=== PATIENT | male | born 1990 | race Caucasian/White ===

== ENCOUNTER 2020-10-11 13:23 | Emergency (ER) | payer SELFPAY ==
[2020-10-11 13:25] VITALS: BP 161/82; PULSE 89; RESP 20; TEMP 36.6; O2SAT 97; BMI 24.2
--- NOTE | 2020-10-11 13:41 | W.ED.GENADLT ---
HPI - General Adult General: Chief complaint: General Medical Stated complaint: PENIS SWELLING/INFECTION, Time Seen by Provider: 10/11/20 13:27 History of Present Illness: HPI narrative: 30-year-old male who presents to the emergency room with complaint of sores on the scrotum. They have been excoriated. He states initially began as pimples he was able to express some whitish fluid from them there were never any clear fluids did not burn. Denies dysuria urgency or frequency. Associated symptoms: Deny malaise Review of Systems Const: Denies: fever(s), chills, body aches, change in appetite, fatigue or malaise Skin/Breast: Reports: sores; Denies: pruritus Physical Exam Const: COMMON NORMALS: no acute distress GENERAL APPEARANCE: cooperative and comfortable ORIENTATION/CONSCIOUSNESS: Yes awake, Yes oriented to person, Yes oriented to place and Yes oriented to time HENMT: COMMON NORMALS: normocephalic, atraumatic and hearing grossly normal bilaterally HEAD & SCALP: normocephalic and atraumatic Neck/C-Spine: COMMON NORMALS: no JVD Resp: COMMON NORMALS: normal respiratory effort, No retractions, No use of accessory muscles and clear to auscultation bilaterally AUSCULTATION: clear to auscultation bilaterally Cardio: COMMON NORMALS: no JVD, regular rate, regular rhythm and No murmurs present (Cardio) RATE: regular rate RHYTHM: regular rhythm Neuro: SENSORIUM/ORIENTATION: Yes oriented to person, Yes oriented to place and Yes oriented to time Skin: NARRATIVE SKIN EXAM: Excoriation on the arms and legs. There is also some on the scrotum and the shaft of the penis. They are not inflamed there is no cratered ulcers. Some bumps from ingrown hairs due to personal shaving. No penile drainage. Course Vital Signs: Vital signs: Vital Signs Temperature 97.9 F 10/11/20 13:25 Pulse Rate 89 10/11/20 13:25 Respiratory Rate 20 H 10/11/20 13:25 Blood Pressure 161/82 10/11/20 13:25 Pulse Oximetry 97 10/11/20 13:25 MDM - General Adult MDM Narrative: Medical decision making narrative: Treated for staph infection topical mupirocin Bactrim follow-up as needed Discharge Plan Discharge Patient Disposition: Home Clinical Impression: Cellulitis of scrotum Condition: Stable Prescriptions: New mupirocin 2 % ointment 1 applic topical TID Qty: 22 RF: 0 sulfamethoxazole-trimethoprim 800-160 mg tablet 1 tab PO BID 10 Days Qty: 20 RF: 0 Discharge Orders: Discharge ED (Routine); Ordered 10/11/20 Ordered By: Gerry Galindo Coding Level of Care Code ED [employer]on Tester for Yenni Gruber
== END 2020-10-11 13:51 | disposition home or self-care (01) ==
PROVIDERS: Emergency Provider Family Medicine
DX: N49.2 Inflammatory disorders of scrotum (principal)
CPT/HCPCS: 12345; 99281

== ENCOUNTER 2021-11-20 16:16 | Emergency (ER) | payer MEDICAID, SELFPAY ==
[2021-11-20 16:36] VITALS: BP 113/74; PULSE 122; RESP 24; TEMP 36.7; O2SAT 92; BMI 24.3
[2021-11-20] MEDS: sodium chloride 0.9% 1,000 ML 999 ML IV (17:09)
[2021-11-20 17:10] VITALS: PULSE 104; RESP 16; O2SAT 95
[2021-11-20] MEDS: diphenhydrAMINE 50 mg/mL SDV 1mL IVP (17:10)
[2021-11-20] MEDS: famotidine 20 mg/2 mL INJ 40 MG IVP (17:13)
[2021-11-20 17:14] VITALS: PULSE 100; RESP 16; O2SAT 96
[2021-11-20] MEDS: terbutaline 1 mg/mL INJ 0.25 MG SUBCUT (17:14)
--- NOTE | 2021-11-20 17:14 | ED_ITS ---
HPI - General Adult General: Chief complaint: Allergic Reaction Stated complaint: sob Time Seen by Provider: 11/20/21 16:44 History of Present Illness: HPI narrative: This 31-year-old male with a history of recent significant allergic reaction presenting to the emergency room with complaints of diffuse erythema, difficulty breathing, wheezing, itchiness on his face which started around 12:00 after he was in contact with a cat. Patient tells me that over the last 3-month, he has had worsening allergic symptoms. Patient tells me and he is currently try to figure out why he is having all these allergy symptoms and has not followed with a PCP or an human resources records clerk. Patient reports that he is allergic to hair and other household items. No complaints of chills, chest pain, shortness of, diarrhea, melena/hematochezia, nausea/vomiting, abdominal complaints, difficulty breathing, drooling, hoarseness of voice, erythema in the mouth or groin, No prior history of anaphylactic attack Onset: 4 hrs ago Duration:4 hrs Location:home Severity:moderate Associated symptoms: Reports dyspnea; Deny chest pain, nausea, rash, palpitations or vomiting Review of Systems Const: Denies: fever(s) or chills Eyes: Denies: change in vision ENMT: Reports: other (+denies drooling, stridor, hoarseness of voice); Denies: mouth pain Card: Denies: chest pain or palpitations Resp: Reports: dyspnea and non-productive cough GI: Denies: abdominal pain, nausea, vomiting or diarrhea : Denies: dysuria Musc: Denies: extremity pain Skin/Breast: Denies: rash or new lesions Neuro: Denies: weakness in extremities Psych: Reports: other (Normal mood) Alpesh/Lymph: Denies: easy bruising PFS ED PFSH: Medical History (Updated 11/20/21 @ 17:16 by Charanjit Gallardo MD) Allergic reaction Social History (Updated 11/20/21 @ 17:16 by Charanjit Gallardo MD) Smoking and tobacco status: current every day smoker Alcohol intake: never Substance/Drug Use: former Physical Exam Const: COMMON NORMALS: alert HENMT: COMMON NORMALS: atraumatic HEAD & SCALP: atraumatic MOUTH: other (no tongue swelling or elevation, no posterior pharnygeal edema/swelling); moist mucous membranes not abnormal Eye: COMMON NORMALS: EOMs intact bilaterally and conjunctivae normal CONJUNCTIVA: Yes conjunctivae normal Neck/C-Spine: COMMON NORMALS: full ROM and supple Resp: COMMON NORMALS: normal respiratory effort AUSCULTATION: other (wheezing b/l) Cardio: RATE: bradycardic GI: COMMON NORMALS: Soft to palpation and non-tender PALPATION: Yes Soft to palpation Extremity: COMMON NORMALS: full ROM Neuro: SENSORIUM/ORIENTATION: Yes alert MOTOR EXAM: No Abnormal motor strength present and Other motor observations present (no focal motor deficits) Psych: COMMON NORMALS: speech normal SPEECH: Yes normal speech MOOD & AFFECT: Yes euthymic mood Course Vital Signs: Vital signs: Vital Signs Temperature 98.1 F 11/20/21 16:36 Pulse Rate 93 11/20/21 19:00 Respiratory Rate 16 11/20/21 19:00 Blood Pressure 142/82 11/20/21 19:00 Pulse Oximetry 97 11/20/21 19:00 MDM - General Adult MDM Narrative Medical decision making narrative: Patient is a 31-year-old male who presents emergency room with complaints of diffuse erythema, difficulty breathing, wheezing and itchiness on his face after getting exposed to a cat. On exam, patient has no signs oral airway compromise. Patient is noted to have wheezing bilaterally. Patient on arrival was noted to be mildly tachycardic to the 120s. Patient is noted to have diffuse erythema with urticaria on the face. Patient received allergic treatments including Solu-Medrol, Pepcid, terbutaline, albuterol neb, and Benadryl with significant improvement in symptoms after observation of 2 hours. Patient continues to be in no respiratory distress or complaints of oral airway swelling. I do not suspect acute anaphylaxis or angioedema at this time. HR imprvoed on reassessment I have given patient follow up with our corrections caseworker to be seen by a primary care provider for allergic testing. Patient aware of a call from our corrections caseworker to schedule for appointment(s) and verbalizes understanding of the importance of following up. Rx prednisone x 5 days, pepcid/zyrtec PRN allergic reaction, albuterol inhaler PRN wheezing Disposition: Discharge. Patient counseled regarding diagnostic impression, treatment plan. Patient given ED strict return precautions to return for continuation, worsening, or development of new symptoms. Instructed to f/u w/ PCP regarding symptoms today. Patient verbalized understanding. Discharge Plan Discharge Patient Disposition: Home Clinical Impression: Allergic reaction, Urticaria, Bilateral wheezing Condition: Stable Prescriptions: New Pepcid 20 mg tablet 20 mg PO BID PRN (Reason: abdominal pain) 10 Days Qty: 20 0RF albuterol sulfate 90 mcg/actuation HFA aerosol inhaler 2 inh inhalation Q4H PRN (Reason: shortness of breath or wheezing) 5 Days Qty: 6.7 0RF prednisone 50 mg tablet 50 mg PO DAILY 5 Days 0RF Zyrtec 10 mg tablet,disintegrating 10 mg PO Q12H PRN (Reason: allergy symptoms) 30 Days Qty: 60 0RF No Action buprenorphine-naloxone [Suboxone] 2-0.5 mg film 1 film buccal DAILY 0RF Rx Instructions: place 1 strip/tab under (each) side of tongue sulfamethoxazole-trimethoprim [Bactrim DS] 800-160 mg tablet 1 tab PO BID 10 Days Qty: 20 0RF Discharge Orders: Discharge ED (Routine); Ordered 11/20/21 Ordered By: Charanjit Gallardo Discharge Diet: Advance as tolerated Discharge Activity: Increase activity as tolerated Patient Instructions: Allergies (ED) Activity Restrictions/Additional Instructions: Come back to the emergency room if you have any worsening symptoms including sore throat, difficulty breathing, choking, drooling, worsening itchiness, or any new or concerning complaints. Take your medicine as instructed. Please follow-up with your primary care provider or human resources records clerk for further evaluation of your symptoms. Coding Level of Care Code ED Cotton Picking Machine Operator for Yenni Fwd Exam Comprehensive
[2021-11-20 17:24] VITALS: BP 143/93; O2SAT 98
[2021-11-20] MEDS: albuterol 8 gm MDI 4 PUFF INHALATION (17:35)
[2021-11-20 19:00] VITALS: BP 142/82; PULSE 93; RESP 16; O2SAT 97
--- NOTE | 2021-11-20 19:08 | PC.NURSE ---
REVIEWED DISCHARGE INSTRUCTIONS WITH PATIENT, PATIENT AMB FROM ED WITH PRESCRIPTIONS AND INSTRUCTIONS
--- NOTE | 2021-11-22 16:03 | DCPLANNER ---
delicatessen manager had message to speak with patient about getting established with a primary care physician. delicatessen manager called phone number [phone], unable to speak with patient at this time. delicatessen manager was unable to leave a voicemail for patient due to no voicemail box set up.
== END 2021-11-20 19:08 | disposition home or self-care (01) ==
PROVIDERS: Emergency Provider Emergency Medicine
DX: T78.40XA Allergy, unspecified, initial encounter (principal); L50.9 Urticaria, unspecified; R06.2 Wheezing; F17.210 Nicotine dependence, cigarettes, uncomplicated
CPT/HCPCS: 94640; 96361; 96372; 96374; 96375; 99284; J1200; J2930; J3105; J3490; J3535; J7030

== ENCOUNTER 2021-12-21 14:05 | Inpatient (IN) | payer MEDICAID, SELFPAY ==
[2021-12-21] VITALS (8 sets, daily range): BP systolic 128–163; BP diastolic 77–104; PULSE 85–118; RESP 14–22; TEMP 36.7–36.9; O2SAT 85–97; BMI 22.5
--- NOTE | 2021-12-21 | USCV_ITS ---
Transthoracic Echo Dillan Brasher Age: 31 Gender: M : 1990 Exam Date: 12/21/2021 19:54 Ordering Phys: Yaakov Nolasco MD Technologist: CKNorma [place]am [place] [facility] [place]ication: Endocarditis BP: / HR: 91 Rhythm: Sinus Technical Quality: Adequate MEASUREMENTS (Male / Female) Normal Values 2D ECHO LV Diastolic Diameter PLAX 5.0 cm 4.2 - 5.9 / 3.9 - 5.3 cm LV Systolic Diameter PLAX 3.1 cm IVS Diastolic Thickness 0.7 cm 0.6 - 1.0 / 0.6 - 0.9 cm IVS Systolic Thickness 1.2 cm LVPW Diastolic Thickness 1.1 cm 0.6 - 1.0 / 0.6 - 0.9 cm LVPW Systolic Thickness 1.5 cm LVOT Diameter 2.3 cm LV Ejection Fraction 2D Teich 68.3 % LV Ejection Fraction MOD 2C 55.7 % LV Ejection Fraction 2C AL 56.1 % LA Diameter 2.4 cm LA Width 3.1 cm LA Height 4.1 cm RA Width 3.3 cm RA Height 3.8 cm Aorta at Sinotubular Diameter 2.1 cm M-MODE Aortic Annulus Diameter 2.4 cm LA Ao Ratio MM 1.2 MV E Point Septal Separation 0.8 cm DOPPLER AV Peak Velocity 120.0 cm/s LVOT Peak Velocity 78.0 cm/s AV Area Cont Eq vti 4.0 cm squared AV Area Cont Eq pk 2.6 cm squared MV Peak Velocity 77.0 cm/s MV Area PHT 4.2 cm squared Mitral E to A Ratio 1.2 MV E' Velocity 38.4 cm/s Mitral E to MV E' Ratio 6.3 Mitral E to LV E' Lateral Ratio 5.6 Mitral E to LV E' Septal Ratio 7.3 TR Peak Velocity 87.9 cm/s TR Peak Gradient 3.1 mmHg TR Mean Velocity 62.2 cm/s TR Mean Gradient 1.6 mmHg TR Velocity Time Integral 15.5 cm PV Peak Velocity 127.0 cm/s RV Acceleration Time 0.1 s RV Ejection Time 0.3 s RV AcT/ET 0.4 FINDINGS Left Ventricle Normal left ventricular size and systolic function, EF 61 %. No regional wall motion abnormalities. Right Ventricle The right ventricle is normal in size and function. Right Atrium The right atrium is normal in size. Left Atrium The left atrium is normal in size. Mitral Valve No gross morphologic abnormalities Aortic Valve No gross morphologic abnormalities Tricuspid Valve No gross morphologic abnormalities Pulmonic Valve Pulmonic valve not well visualized. Pericardium Normal pericardium without effusion. Aorta Normal ascending aorta dimension. CONCLUSIONS Normal left ventricular size and systolic function, EF 61 %. No regional wall motion abnormalities. No significant stenotic or regurgitant lesions. No intracardiac masses. No pericardial effusion. No previous study is available for comparison. Dr Jazmine Yeung MD FACC (Electronically Signed) Final Date: 22 December 2021 12:41 S
--- NOTE | 2021-12-21 14:22 | XR_ITS ---
WS: [id number] Exam: XR chest 1V portable [id number] Date/Time of Exam: 12/21/2021 2:28 PM Reason For Exam: dyspnea/cough Comparison 08/17/2015. Findings: The lungs are clear and fully expanded. Costophrenic angles are sharp. No infiltrates. Bronchovascula r relief appears normal. Cardiac silhouette is unremarkable. Bony elements are intact. XR/XR chest 1V portable [id number] IMPRESSION: Unremarkable chest radiograph.
--- NOTE | 2021-12-21 14:23 | ECG_ITS ---
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 Measurements Intervals [place] Rate: 103 P: 80 MN: 141 QRS: 90 QRSD: 97 T: 71 QT: 340 QTc: 447 Interpretive Statements SINUS TACHYCARDIA ABNORMAL RHYTHM ECG Compared to ECG 08/17/2015 12:52:59 No significant changes Electronically Signed On 12-21-2021 20:04:32 COIL BUILDER by Jazmine Yeung M.D. [email or web address]
--- NOTE | 2021-12-21 14:27 | CTR_ITS ---
PROCEDURE INFORMATION: Exam: CTA Chest With Contrast Exam date and time: 12/21/2021 2:27 PM Age: 31 years old Clinical indication: Nausea and vomiting; Shortness of breath; Additional info: Hypoxia/abd pain TECHNIQUE: Imaging protocol: Computed tomographic angiography of the chest with contrast. 3D rendering (Not supervised by radiologist): MIP and/or 3D reconstructed images were created by the technologist. Radiation optimization: All CT scans at this facility use at least one of these dose optimization techniques: automated exposure control; mA and/or kV adjustment per patient size (includes targeted exams where dose is matched to clinical indication); or iterative reconstruction. Contrast material: OMNI 350; Contrast volume: 95 ml; Contrast route: INTRAVENOUS (IV); COMPARISON: CR XR chest 1V portable [id number] 12/21/2021 2:55 PM RADIATION DOSE METRICS: Total DLP (mGy-cm): 2112. FINDINGS: Pulmonary arteries: No pulmonary embolus is visualized. Aorta: Unremarkable. No aortic aneurysm. No aortic dissection. Lungs: Confluent ground-glass opacities with interstitial thickening are seen in bilateral upper lobes, the right middle lobe, and the lingula. Mild bronchial wall thickening and scattered areas of bronchial mucous plugging are seen in both lungs. Pleural spaces: Unremarkable. No pneumothorax. No pleural effusion. Heart: The heart is normal in size. The heart is normal in size. Lymph nodes: Unremarkable. No enlarged lymph nodes. Bones/joints: Unremarkable. No acute fracture. Soft tissues: Unremarkable. PROCEDURE INFORMATION: Exam: CT Abdomen And Pelvis With Contrast Exam date and time: 12/21/2021 2:27 PM Age: 31 years old Clinical indication: Nausea and vomiting; Shortness of breath; Additional info: Hypoxia/abd pain TECHNIQUE: Imaging protocol: Computed tomography of the abdomen and pelvis with contrast. Radiation optimization: All CT scans at this facility use at least one of these dose optimization techniques: automated exposure control; mA and/or kV adjustment per patient size (includes targeted exams where dose is matched to clinical indication); or iterative reconstruction. Contrast material: OMNI 350; Contrast volume: 95 ml; Contrast route: INTRAVENOUS (IV); COMPARISON: CR XR chest 1V portable [id number] 12/21/2021 2:55 PM RADIATION DOSE METRICS: Total DLP (mGy-cm): 2112.89 FINDINGS: Liver: Normal. No mass. Gallbladder and bile ducts: Normal. No calcified stones. No ductal dilation. Pancreas: Normal. No ductal dilation. Spleen: Normal. No splenomegaly. Adrenal glands: Normal. No mass. Kidneys and ureters: Normal. No hydronephrosis. Stomach and bowel: No intestinal obstruction. A moderate amount of stool is present in the colon. Mild gaseous distention of the colon is also appreciated. Appendix: The appendix is normal. Intraperitoneal space: Unremarkable. No free air. No significant fluid collection. Vasculature: Unremarkable. No abdominal aortic aneurysm. Lymph nodes: Unremarkable. No enlarged lymph nodes. Urinary bladder: Unremarkable as visualized. Reproductive: Unremarkable as visualized. Bones/joints: Mild degenerative disc disease changes are present at L5-S1. No acute fracture is visualized. Soft tissues: Unremarkable. CT/CT angio chest w abd pel w con IMPRESSION: 1. No pulmonary embolus. 2. Mild bronchial wall thickening and bilateral patchy areas of ground-glass and interstitial opacities may be secondary to mild viral pulmonary infection. IMPRESSION: No acute abnormality is seen in the abdomen or pelvis. Possible constipation.
--- NOTE | 2021-12-21 14:47 | PC.NURSE ---
Meth and Fentanyl on a daily use. Last use this morning
--- NOTE | 2021-12-21 14:48 | ED_ITS ---
HPI - SOB/Dyspnea General: Chief Complaint: Shortness of Breath/Dyspnea Stated Complaint: SOB Time Seen by Provider: 12/21/21 14:14 Source: patient Mode of arrival: ambulatory History of Present Illness: HPI Narrative: 31-year-old male presents emergency room complaining of severe shortness of breath for the last 3 days. Patient states he feels like he is going to . 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 He does admit to his last use of methamphetamine a few hours before coming in today. He has had a low-grade fever at home. He initially attributed the shortness of breath to allergies. He has some abdominal discomfort as well. He was seenOn November 20 of this year for presumed allergic reaction at that time was given prednisone Pepcid and albuterol and the attack. He is listed as being on Suboxone. At the time that he was seen he was also on Bactrim DS. That was for the sores on his skin. He has multiple open excoriated sores on his neck arms back and 1 on the underside of his scrotum. On arrival here his room air oxygen sat is in the mid 80s. MD elicited complaint: shortness of breath and cough Onset (ago): week(s) Context: recent illness Timing: constant Severity: severe Exacerbating factors: nothing Associated symptoms: Reports abdominal pain, chest congestion, chest pain, cough, diaphoresis, fever(s), lightheadedness, myalgias, nausea, orthopnea and rash; Deny dizziness, extremity pain, hemoptysis, palpitations, paresthesias, polyd ipsia, polyuria, sense of impending doom, syncope or vomiting Treatment prior to arrival: none Review of Systems Const: Reports: fever(s) and diaphoresis ENMT: Denies: throat pain, ear or mastoid pain, nasal discharge or nasal congestion Card: Reports: chest pain, lightheadedness and orthopnea; Denies: palpitations or syncope Resp: Reports: chest congestion; Denies: hemoptysis GI: Reports: abdominal pain and nausea; Denies: vomiting : Denies: flank pain, dysuria, urinary frequency or urinary urgency Musc: Denies: extremity pain Skin/Breast: Denies: rash or pruritus Neuro: Denies: dizziness Endo: Denies: polyuria or polydipsia PFS ED PFSH: Medical History Allergic reaction History of asthma Surgical History History of tonsillectomy Family History Grandfather Stroke Father Hypertension Social History Smoking and tobacco status: current every day smoker Alcohol intake: never Substance/Drug Use: current Physical Exam Const: GENERAL APPEARANCE: cooperative and disheveled; not comfortable ORIENTATION/CONSCIOUSNESS: Yes awake, Yes oriented to person, Yes oriented to place and Yes oriented to time HENMT: COMMON NORMALS: normocephalic, atraumatic, hearing grossly normal bilaterally, external ears normal, EAC's normal, TM's normal bilaterally, Normal nasal mucous membranes and turbinates present, moist oral mucous membranes and oropharynx normal HEAD & SCALP: normocephalic and atraumatic NOSE: Normal nasal mucous membranes and turbinates present EXTERNAL EAR: Yes external ears normal EXTERNAL AUDITORY CANAL: EAC's normal TYMPANIC MEMBRANE: TM's normal bilaterally Eye: COMMON NORMALS: Equal, round and reactive pupils present, EOMs intact bilaterally, conjunctivae normal and no scleral icterus CONJUNCTIVA: Yes conjunctivae normal PUPIL: Yes Equal, round and reactive pupils present Neck/C-Spine: COMMON NORMALS: full ROM, no lymphadenopathy, supple and no JVD Lymph: LYMPHATIC: no lymphadenopathy noted and no lymphedema noted Resp: EFFORT & INSPECTION: Yes labored and Yes uses accessory muscles AUSCULTATION: rhonchi and wheezes Cardio: COMMON NORMALS: no JVD and regular rhythm RATE: tachycardic RHYTHM: regular rhythm GI: COMMON NORMALS: Soft to palpation and No hepatosplenomegaly present AUSCULTATION: Yes normoactive bowel sounds PALPATION: Yes Soft to palpation, Yes Tenderness to palpation present (GI) (Diffuse), No Guarding due to palpation present (GI) and Yes No hepatosplenomegaly present Extremity: COMMON NORMALS: normal to inspection, capillary refill normal, no clubbing, cyanosis or edema, no calf tenderness and no pedal edema Neuro: SENSORIUM/ORIENTATION: Yes oriented to person, Yes oriented to place and Yes oriented to time Course Vital Signs: Vital signs: Vital Signs Temperature 98.1 F 12/23/21 05:17 Pulse Rate 86 12/23/21 06:00 Respiratory Rate 18 12/23/21 05:17 Blood Pressure 149/78 12/23/21 05:17 Pulse Oximetry 95 12/23/21 05:17 MDM - SOB/Dyspnea Medical Decision Making Patient with acute respiratory failure with hypoxia. No PE noted.Suspect this may all be an exacerbation of asthma he has significant amount of wheezing. Cover with antibiotics steroids pulmonary toilet.. Covid is negative. Discussed with hospitalist. Medical Records I reviewed the patient's medical records. Lab Data I reviewed the patient's lab results. : 12/23/21 06:07 12/23/21 06:07 Labs/Radiology: Radiology Impressions Chest X-Ray 12/21/21 14:22 IMPRESSION: Unremarkable chest radiograph. Chest/Abdomen/Pelvis CT 12/21/21 14:27 IMPRESSION: 1. No pulmonary embolus. 2. Mild bronchial wall thickening and bilateral patchy areas of ground-glass and interstitial opacities may be secondary to mild viral pulmonary infection. IMPRESSION: No acute abnormality is seen in the abdomen or pelvis. Possible constipation. Laboratory Results WBC 7.0 10^3/uL (4.0-10.0) 12/21/21 14:47 RBC 4.78 10^6/uL (4.1-5.3) 12/21/21 14:47 Hgb 14.8 g/dL (11.7-16.6) 12/21/21 14:47 Hct 41.8 % (42.0-52.0) L 12/21/21 14:47 MCV 87.4 fl (80-94) 12/21/21 14:47 MCH 31.0 pg (28.0-34.0) 12/21/21 14:47 MCHC 35.4 g/dL (30.0-36.0) 12/21/21 14:47 RDW 11.5 % (12.1-15.1) L 12/21/21 14:47 Plt Count 232 10^3/cmm (130-400) 12/21/21 14:47 MPV 10.9 fL (7.4-10.4) H 12/21/21 14:47 Neut % (Auto) 68.7 % 12/21/21 14:47 Lymph % (Auto) 17.1 % 12/21/21 14:47 [place] % (Auto) 11.4 % 12/21/21 14:47 Eos % (Auto) 1.9 % 12/21/21 14:47 Baso % (Auto) 0.6 % 12/21/21 14:47 Neut # (Auto) 4.79 10^3/uL (1.8-7.7) 12/21/21 14:47 Lymph # (Auto) 1.2 10^3/uL (0.8-4.8) 12/21/21 14:47 [place] # (Auto) 0.8 10^3/uL (0.2-0.9) 12/21/21 14:47 Eos # (Auto) 0.1 10^3/uL (0.0-0.8) 12/21/21 14:47 Baso # (Auto) 0.0 10^3/uL (0.0-0.1) 12/21/21 14:47 Nucleated RBC % (auto) 0 % 12/21/21 14:47 Nucleated RBCs # 0.0 /100WBC 12/21/21 14:47 Specimen Type Arterial 12/21/21 14:45 Sample Site Radial, right 12/21/21 14:45 ABG pH 7.42 (7.35-7.45) 12/21/21 14:45 ABG pCO2 45.6 mmHg (35-45) H 12/21/21 14:45 ABG pO2 75.8 mmHg (80.0-100.0) L 12/21/21 14:45 ABG HCO3 29.6 mmol/L (22-26) H 12/21/21 14:45 ABG O2 Saturation 96.2 12/21/21 14:45 ABG Base Excess 4.2 mmol/L (-2.0-2.0) H 12/21/21 14:45 Aristides Test Pos 12/21/21 14:45 A-a O2 Gradient 16.5 mmHg (5-10) H 12/21/21 14:45 Hematocrit 47.1 % (42-52) 12/21/21 14:45 Hgb O2 Saturation 94.1 % (95-100) L 12/21/21 14:45 Carboxyhemoglobin 1.1 %THgb (0.4-20.1) 12/21/21 14:45 Methemoglobin 1.1 % (0.4-1.5) 12/21/21 14:45 Total Hemoglobin 15.4 g/dL (14-18) 12/21/21 14:45 Sodium 134.0 mmol/L (131-143) 12/21/21 14:45 Potassium 4.0 mmol/L (3.5-5.0) 12/21/21 14:45 Glucose 105.0 mg/dL (70-115) 12/21/21 14:45 Ionized Calcium 1.2 mmol/L (1.1-1.4) 12/21/21 14:45 O2 Delivery Device Nc 12/21/21 14:45 O2 Liters/Min 4.0 % 12/21/21 14:45 FiO2 36.0 % 12/21/21 14:45 Ink Jet Operator ID glc 12/21/21 14:45 Sodium 130 mmol/L (136-145) L 12/21/21 14:47 Potassium 4.2 mmol/L (3.5-5.1) 12/21/21 14:47 Chloride 93 mmol/L (98-107) L 12/21/21 14:47 Carbon Dioxide 26 mmol/L (22-29) 12/21/21 14:47 Anion Gap 15.2 (5-19) 12/21/21 14:47 BUN 16 mg/dL (6-20) 12/21/21 14:47 Creatinine 1.0 mg/dL (0.7-1.2) 12/21/21 14:47 GFR Calculation 87.7 mL/min (90-130) L 12/21/21 14:47 Glucose 109 mg/dL (65-115) 12/21/21 14:47 Estimat Average Glucose 100 12/21/21 14:47 Hemoglobin A1c 5.1 % (4.0-6.0) 12/21/21 14:47 Calculated Osmolality 272 mOsm/kg (285-295) L 12/21/21 14:47 Lactic Acid 1.0 mmol/L (0.5-2.2) 12/21/21 14:47 Calcium 9.6 mg/dL (8.5-10.5) 12/21/21 14:47 Magnesium 2.0 mg/dL (1.7-2.3) 12/21/21 14:47 Total Bilirubin 0.3 mg/dL (0.15-1.2) 12/21/21 14:47 AST 32 U/L (0-40) 12/21/21 14:47 ALT 28 U/L (0-41) 12/21/21 14:47 Alkaline Phosphatase 87 IU/L (40-130) 12/21/21 14:47 Creatine Kinase 137 U/L (39-308) 12/21/21 14:47 Troponin T Baseline 9 ng/L (0-15) 12/21/21 14:47 Troponin T 120 Minute 6.49 ng/L (0-15) 12/21/21 16:50 Delta Troponin T -2.51 ABS# (0-10) L 12/21/21 16:50 NT-Pro-B Natriuret Pep 51 pg/mL (0-125) 12/21/21 14:47 Total Protein 7.3 g/dL (6.6-8.7) 12/21/21 14:47 Albumin 4.3 g/dL (3.5-5.2) 12/21/21 14:47 Globulin 3.0 g/dL (1.3-4.6) 12/21/21 14:47 Lipase 11 U/L (13-60) L 12/21/21 14:47 Urine Color Yellow (Yellow) 12/21/21 17:12 Urine Appearance Clear (CLEAR) 12/21/21 17:12 Urine pH 7 (5-7) 12/21/21 17:12 Ur Specific [place] 1.010 (1.005-1.030) 12/21/21 17:12 Urine Protein Neg (Negative) 12/21/21 17:12 Urine Glucose (UA) Norm (Normal) 12/21/21 17:12 Urine Ketones 1+ (Negative) H 12/21/21 17:12 Urine Blood Neg (Negative) 12/21/21 17:12 Urine Nitrate Negative (Negative) 12/21/21 17:12 Urine Bilirubin Neg (Negative) 12/21/21 17:12 Urine Urobilinogen 1 mg/dL (Negative) H 12/21/21 17:12 Ur Leukocyte Esterase Negative (Negative) 12/21/21 17:12 Urine Opiates Screen Negative ng/mL (Negative) 12/21/21 17:12 Ur Barbiturates Screen Negative ng/mL (Negative) 12/21/21 17:12 Ur Phencyclidine Scrn Negative ng/mL (Negative) 12/21/21 17:12 Ur Amphetamines Screen Positive ng/mL (Negative) H 12/21/21 17:12 U Benzodiazepines Scrn Positive ng/mL (Negative) H 12/21/21 17:12 Urine Cocaine Screen Positive ng/mL (Negative) H 12/21/21 17:12 U Marijuana (THC) Screen Negative ng/mL (Negative) 12/21/21 17:12 Discharge Plan Discharge Patient Disposition: Admitted As Inpatient Admit Provider: Yaakov Nolasco Clinical Impression: Asthma exacerbation, IV drug abuse, Hepatitis C, Cellulitis, Pneumonia, Acute respiratory failure with hypoxia Condition: Stable Coding Level of Care Code ED Cytogenetics Technologist for Chg Fwd Exam Comprehensive
[2021-12-21 14:57] LABS: ABG PCO2 45.6 mmHg (35-45); ABG PH Result 7.42 (7.35-7.45); Alveolar-Arterial Oxygen Gradi 16.5 mmHg (5-10); Arterial Blood Gas Hematocrit 47.1 % (42-52); Base Excess ABG 4.2 mmol/L (-2.0-2.0); Blood Gas Allen Test Pos; Blood Gas Operator Identificat glc; Blood Gas Sample Site Radial, right; Blood Gas Sample Type Arterial; Carboxyhemoglobin 1.1 %THgb (0.4-20.1); HCO3 ABG 29.6 mmol/L (22-26); HGB O2 Sat 94.1 % (95-100); Ionized Calcium Level - ABG 1.2 mmol/L (1.1-1.4); Methemoglobin 1.1 % (0.4-1.5); Oxygen Device NC; Oxygen Saturation ABG 96.2; PO2 ABG 75.8 mmHg (80.0-100.0); Total Hemoglobin 15.4 g/dL (14-18)
[2021-12-21 14:57] LABS: Basophils % 0.6 %; Eosinophils # 0.1 10^3/uL (0.0-0.8); Eosinophils % 1.9 %; Hematocrit 41.8 % (42.0-52.0); Hemoglobin 14.8 g/dL (11.7-16.6); Lymphocytes # 1.2 10^3/uL (0.8-4.8); Lymphocytes % 17.1 %; Mean Corpuscular HGB Conc 35.4 g/dL (30.0-36.0); Mean Corpuscular Volume 87.4 fl (80-94); Mean Platelet Volume 10.9 fL (7.4-10.4); Monocytes # 0.8 10^3/uL (0.2-0.9); Monocytes % 11.4 %; Neutrophils # 4.79 10^3/uL (1.8-7.7); Neutrophils % 68.7 %; Nucleated Red Blood Cells % 0 %; Platelet Count 232 10^3/cmm (130-400); Red Blood Count 4.78 10^6/uL (4.1-5.3); Red Cell Distribution Width 11.5 % (12.1-15.1)
[2021-12-21] MEDS: lactated ringers 1,000 ML 999 ML IV (14:59)
[2021-12-21] MEDS: vancomycin 1,000 MG in sodium chloride 0.9% 250 ML 250 MG IV (15:00)
[2021-12-21 15:19] LABS: Troponin(5th) Baseline 9 ng/L (0-15)
[2021-12-21 15:28] LABS: Alanine Aminotransferase 28 U/L (0-41); Albumin Level 4.3 g/dL (3.5-5.2); Alkaline Phosphatase 87 IU/L (40-130); Anion Gap 15.2 (5-19); Aspartate Amino Transferase 32 U/L (0-40); Blood Urea Nitrogen 16 mg/dL (6-20); Calcium 9.6 mg/dL (8.5-10.5); Carbon Dioxide 26 mmol/L (22-29); Chloride 93 mmol/L (98-107); Creatine Phosphokinase 137 U/L (39-308); Glomerular Filtration Rate 87.7 mL/min (90-130); Glucose 109 mg/dL (65-115); Lipase 11 U/L (13-60); NT Pro B Type Natriuretic Pept 51 pg/mL (0-125); Osmolality Calculated 272 mOsm/kg (285-295); Potassium 4.2 mmol/L (3.5-5.1); Sodium 130 mmol/L (136-145); Total Bilirubin 0.3 mg/dL (0.15-1.2); Total Protein 7.3 g/dL (6.6-8.7)
[2021-12-21] MEDS: diphenhydrAMINE 50 mg/mL SDV 1mL IVP (15:43)
[2021-12-21] MEDS: iohexol 350 mg/mL 100 mL Btl IV ×2 (16:00→16:01)
--- NOTE | 2021-12-21 16:23 | ECG_ITS ---
[facility] Test Date: 2021-12-21 Pat Name: Dillan Brasher Department: Room: Gender: Male Managed Care Director: : 1990 Requested By: Gerry Chacko Order Number: [id number] Jeevan MD: Jazmine Yeung M.D. Measurements Intervals [place] Rate: 84 P: 83 ME: 154 QRS: 92 QRSD: 97 T: 78 QT: 366 QTc: 434 Interpretive Statements SINUS RHYTHM BORDERLINE RIGHT AXIS DEVIATION [QRS AXIS > 90] Compared to ECG 12/21/2021 14:41:55 Sinus tachycardia no longer present Electronically Signed On 12-21-2021 20:14:01 REHAB NURSE by Jazmine Yeung M.D. [id number]
[2021-12-21 17:20] LABS: Add Urine Microscopic? NO; Charge for UA Resulting for Rev
[2021-12-21 17:24] LABS: Bilirubin Urine Neg (Negative); Blood Urine Neg (Negative); Glucose Urine UA Norm (Normal); Ketones Urine 1+ (Negative); Leukocyte Esterase Urine Negative (Negative); Nitrate Urine Negative (Negative); Protein Urine Neg (Negative); Urine Appearance Clear (CLEAR); Urine Color Yellow (Yellow); Urobilinogen Urine 1 mg/dL (Negative); pH Urine 7 (5-7)
--- NOTE | 2021-12-21 17:33 | P.HP_ITS ---
Providers/Chief Complaint Chief Complaint: SOB History of Present Illness Dillan Brasher is a 31 year old male with a past medical history of asthma, history of IV drug abuse, who presents to [facility] due to shortness of breath. Patient tells me that he has been vaccinated for COVID, has received both COVID vaccinations, has not received flu vaccine. He presents to [facility] as he has been experiencing increasingly short of breath, he has been wheezing, trouble catching his breath, having low-grade fevers, no headache, no blurry vision, no neck pain, no neck stiffness, no chest pain, no palpitations, no abdominal pain, no diarrhea. He does have areas of cellulitis over his back, over his left arm, on his chest from his chronic scratching, he thought he had an allergic reaction back in October, was given steroids, antibiotics but also in areas of drug use. He reports IV drug abuse, fentanyl, methamphetamine. Last use was yesterday, denies any history of heart infections, or peripheral infections. However his girlfriend tells me that he used fentanyl this morning Review of Systems Const: Reports: fever(s), chills, fatigue and malaise Eyes: Denies: change in vision or blurry vision ENMT: Denies: nasal congestion Card: Denies: chest pain or palpitations Resp: Reports: dyspnea and wheezing; Denies: productive cough or non-productive cough GI: Denies: abdominal pain, nausea, vomiting, hematemesis, diarrhea, constipation, hematochezia or melena : Denies: flank pain, difficulty urinating, dysuria or urinary frequency Musc: Denies: neck pain or back pain Skin/Breast: Reports: rash and pruritus Neuro: Denies: headache(s), dizziness or vertigo Endo: Denies: polyuria or polydipsia Medications/Allergies Home Medications Medication Instructions Recorded Confirmed Last Taken Type buprenorphine 2 mg-naloxone 0.5 mg 1 film BUCCAL DAILY 11/09/20 11/09/20 Unknown History sublingual film (Suboxone) sulfamethoxazole 800 1 tab PO BID 10 Days #20 tab 11/09/20 11/09/20 Unknown Rx mg-trimethoprim 160 mg tablet (Bactrim DS) Allergies Allergy/AdvReac Type Severity Reaction Status Date / Time Penicillins Allergy ALGY-Hives Verified 11/09/20 14:00 PFSH Acute PFSH: Medical History (Updated 12/21/21 @ 17:39 by Yaakov Nolasco MD) Allergic reaction History of asthma Surgical History (Updated 12/21/21 @ 17:38 by Yaakov Nolasco MD) History of tonsillectomy Family History (Updated 12/21/21 @ 17:38 by Yaakov Nolasco MD) Grandfather Stroke Father Hypertension Social History (Updated 12/21/21 @ 17:38 by Yaakov Nolasco MD) Smoking and tobacco status: current every day smoker Alcohol intake: never Substance/Drug Use: current Vitals/I&O/Wt Last Vital Signs Temp 98.5 F 12/21/21 14:15 Pulse 93 12/21/21 17:03 Resp 17 12/21/21 17:03 BP 128/86 12/21/21 17:03 Pulse Ox 97 12/21/21 17:03 Physical Exam Const: COMMON NORMALS: no acute distress and patient oriented x3 HENMT: COMMON NORMALS: normocephalic HEAD & SCALP: normocephalic Neck/C-Spine: COMMON NORMALS: no JVD Lymph: LYMPHATIC: no lymphadenopathy noted Resp: COMMON NORMALS: normal respiratory effort, No retractions, No use of accessory muscles and clear to auscultation bilaterally AUSCULTATION: wheezes Cardio: COMMON NORMALS: regular rate, regular rhythm, S1 normal heart sound present and S2 normal heart sound present RATE: regular rate RHYTHM: regular rhythm HEART SOUNDS: S1 normal heart sound present and S2 normal heart sound present GI: COMMON NORMALS: Normal to inspection, nondistended, normoactive bowel sounds present, Soft to palpation, non-tender, No hepatosplenomegaly present, no masses and no bruits PALPATION: Yes Soft to palpation and Yes No hepatosplenomegaly present Extremity: COMMON NORMALS: capillary refill normal, no clubbing, cyanosis or edema, no calf tenderness and no pedal edema Neuro: COMMON NORMALS: patient oriented x3 Psych: COMMON NORMALS: mental status grossly normal Skin: NARRATIVE SKIN EXAM: Multiple excoriations Left arm largest measuring 1 x 1 cm round, superficial Over sternum Over back With surrounding erythema, no significant drainage Data : 12/21/21 14:47 12/21/21 14:47 Micro: Microbiology 12/21/21 16:50 Blood Culture - Preliminary Blood SPECIMEN COLLECTED 12/21/21 14:47 Blood Culture - Preliminary Blood SPECIMEN COLLECTED A&P Assessment and plan (1) Asthma exacerbation: Status: Acute (2) Cellulitis: Status: Acute (3) Pneumonia: Status: Acute (4) Hypoxia: Status: Acute (5) IV drug abuse: Status: Acute Plan Acute hypoxia -Requiring 4 L -Multifactorial from viral pneumonia, asthma exacerbation -Sputum cultures, blood cultures, urine cultures, viral culture -Monitor respiratory status closely -Albuterol, budesonide -Solu-Medrol -Vancomycin and Zosyn for antibiotic coverage -Covid PCR, rapid flu -COVID-19 precautions -Vitamin C, vitamin D, zinc, incentive spirometer, flutter valve -Full code -Lovenox for DVT prophylaxis History of IV drug abuse -Cardiac echocardiogram to evaluate for endocarditis -Follow blood cultures -Follow inflammatory markers -Rapid plasma reagin, lactic acid, gonorrhea chlamydia,, alcohol, HIV, acute hep Cellulitis -Multiple cellulitic areas from IV drug abuse, scratching -Possible chancres from syphilis? -For now broad-spectrum antibiotic therapy -Testing as above Attestations Medical Necessity Statement*: Patient requires hospitalization, inpatient, greater than 2 minutes, asthma exacerbation, cellulitis Coding Level of Care Code Acute Network Services Project Manager for ruth Gruber Diagnoses Asthma exacerbation J45.901 Cellulitis L03.90 Pneumonia J18.9 Hypoxia R09.02 IV drug abuse F19.10
[2021-12-21 17:42] LABS: Troponin 5 2HR 6.49 ng/L (0-15)
[2021-12-21 17:52] LABS: Troponin 5 2HR Delta -2.51 ABS# (0-10)
[2021-12-21] MEDS: levofloxacin-dextrose 5 % 750 MG/150 ML PREMIX 100 MG IV (18:02)
[2021-12-21 19:00] LABS: Lactic Sepsis W/Reflex 1.2 mmol/L (0.5-2.2)
[2021-12-21 19:33] LABS: HIV 1 & 2 Antibody Non-Reactive (Non-Reactiv); HIV 1 & 2 Antigen Non-Reactive (Non-Reactiv); Procalcitonin 0.08 ng/mL (0-0.5)
[2021-12-21 19:34] LABS: Alcohol Level < 10 mg/dL (0-10); C Reactive Protein 91.4 mg/L (0.0-4.9)
[2021-12-21] MEDS: enoxaparin 40 mg/0.4 mL Syringe SUBCUT (19:51)
[2021-12-21] MEDS: D5-NS 0.45% + KCL 20 mEq 20 MEQ/1,000 ML BAG 100 MEQ IV (19:51)
[2021-12-21] MEDS: ascorbic acid 500 mg Tablet PO (19:51)
[2021-12-21] MEDS: pantoprazole 40 mg SDV IVP (19:52)
[2021-12-21 20:03] LABS: Thyroid Stimulating Hormone 0.66 uIU/mL (0.27-4.20)
--- NOTE | 2021-12-21 20:23 | ECG_ITS ---
[facility] Test Date: 2021-12-21 Pat Name: Dillan Brasher Department: Room: 260 Gender: Male Director Social Service: : 1990 Requested By: Gerry Chacko Order Number: [id number] Jeevan MD: Jazmine Yeung M.D. Measurements Intervals [place] Rate: 80 P: 77 RI: 140 QRS: 89 QRSD: 93 T: 76 QT: 377 QTc: 437 Interpretive Statements SINUS RHYTHM Compared to ECG 12/21/2021 16:57:22 No significant changes Electronically Signed On 12-22-2021 13:43:19 TUBE TURNER by Jazmine Yeung M.D. [email or web address] [email or web address] hospitalSparo Labs/store/[id number]
[2021-12-21 20:25] LABS: Estmated Average Glucose 100; Hemoglobin A1C 5.1 % (4.0-6.0)
[2021-12-21 20:33] LABS: Amphetamines Screen Urine Positive (Negative); Barbiturates Screen Urine Negative (Negative); Benzodiazepines Screen Urine Positive (Negative); Cocaine Screen Urine Positive (Negative); Opiate Screen Urine Negative (Negative); PCP Screen Urine Negative (Negative); THC Screen Urine Negative (Negative)
[2021-12-21 20:36] LABS: Rapid Plasma Reagin Syphilis Nonreactive (Nonreactive)
[2021-12-21 20:39] LABS: Hepatitis A Antibody IgM Non-Reactive (Nonreactive); Hepatitis B Core IgM Non-Reactive (Nonreactive); Hepatitis B Surface Antigen Non-Reactive (Nonreactive); Hepatitis C Virus Antibody Reactive (Nonreactive)
[2021-12-21 21:13] LABS: Adenovirus Not Detected (NOT DETECT); Chlamydia Pneumoniae Not Detected (NOT DETECT); Coronavirus 229E,HKU1,NL63,OC4 Not Detected (NOT DETECT); Human Metapneumovirus Not Detected (NOT DETECT); Human Rhinovirus/Enterovirus Not Detected (NOT DETECT); Influenza A Not Detected (NOT DETECT); Influenza A H1 Not Detected (NOT DETECT); Influenza A H1-2009 Not Detected (NOT DETECT); Influenza A H3 Not Detected (NOT DETECT); Influenza B Not Detected (NOT DETECT); Mycoplasma Pneumoniae Not Detected (NOT DETECT); Parainfluenza Virus Type 1 Not Detected (NOT DETECT); Parainfluenza Virus Type 2 Not Detected (NOT DETECT); Parainfluenza Virus Type 3 Not Detected (NOT DETECT); Parainfluenza Virus Type 4 Not Detected (NOT DETECT); Respiratory Syncytial Virus A Not Detected (NOT DETECT); Respiratory Syncytial Virus B Not Detected (NOT DETECT); SARS-COV-2 Not Detected (NOT DETECT)
[2021-12-21] MEDS: vancomycin 1,250 MG/250 ML PIGGYBACK 200 MG IV (22:05)
[2021-12-21] MEDS: albuterol 8 gm MDI 1 PUFF INHALATION (23:02)
[2021-12-21 23:12] LABS: Results from Genmark
[2021-12-22] VITALS (17 sets, daily range): BP systolic 104–149; BP diastolic 63–83; PULSE 70–109; RESP 17–22; TEMP 36.3–37.1; O2SAT 91–97
[2021-12-22 00:39] LABS: Glucose Point of Care 145 mg/dL (70-110)
[2021-12-22 02:58] LABS: Basophils % 0.2 %; Hematocrit 41.3 % (42.0-52.0); Hemoglobin 14.1 g/dL (11.7-16.6); Lymphocytes # 0.4 10^3/uL (0.8-4.8); Mean Corpuscular HGB Conc 34.1 g/dL (30.0-36.0); Mean Corpuscular Hemoglobin 30.9 pg (28.0-34.0); Mean Corpuscular Volume 90.6 fl (80-94); Mean Platelet Volume 11.3 fL (7.4-10.4); Monocytes # 0.1 10^3/uL (0.2-0.9); Monocytes % 2.4 %; Neutrophils # 4.89 10^3/uL (1.8-7.7); Nucleated Red Blood Cells % 0 %; Platelet Count 231 10^3/cmm (130-400); Red Blood Count 4.56 10^6/uL (4.1-5.3); Red Cell Distribution Width 11.5 % (12.1-15.1); White Blood Count 5.5 10^3/uL (4.0-10.0)
[2021-12-22 03:05] LABS: INR 1.09 (0.8-1.2)
[2021-12-22] MEDS: albuterol 8 gm MDI 1 PUFF INHALATION ×6 (03:11→23:44)
[2021-12-22 03:13] LABS: Magnesium 2.1 mg/dL (1.7-2.3); Phosphorus 3.2 mg/dL (2.5-4.5)
[2021-12-22 03:18] LABS: Alanine Aminotransferase 25 U/L (0-41); Albumin Level 3.9 g/dL (3.5-5.2); Alkaline Phosphatase 86 IU/L (40-130); Anion Gap 13.2 (5-19); Aspartate Amino Transferase 27 U/L (0-40); Blood Urea Nitrogen 14 mg/dL (6-20); Calcium 9.4 mg/dL (8.5-10.5); Carbon Dioxide 27 mmol/L (22-29); Chloride 97 mmol/L (98-107); Globulin 3.4 g/dL (1.3-4.6); Glomerular Filtration Rate 99.1 mL/min (90-130); Glucose 148 mg/dL (65-115); Osmolality Calculated 277 mOsm/kg (285-295); Potassium 5.2 mmol/L (3.5-5.1); Sodium 132 mmol/L (136-145); Total Bilirubin 0.2 mg/dL (0.15-1.2); Total Protein 7.3 g/dL (6.6-8.7)
[2021-12-22 03:21] LABS: NT Pro B Type Natriuretic Pept 348 pg/mL (0-125); Procalcitonin 0.06 ng/mL (0-0.5)
[2021-12-22 03:31] LABS: Creatine Phosphokinase 150 U/L (39-308)
--- NOTE | 2021-12-22 05:17 | PC.NURSE ---
Spoke with patient's girlfriend at bedside about pt hx. Patient's girlfriend stated, he last week This RN asked her to explain further and she stated, last week he overdosed on fentanyl and got stiff and blue. We did CPR and his mom gave him 2 doses of narcan. He woke up and was fine so we didn't call an ambulance.
[2021-12-22] MEDS: vancomycin 1,250 MG/250 ML PIGGYBACK 200 MG IV ×3 (05:31→21:11)
[2021-12-22] MEDS: budesonide 0.5 mg/2 mL Neb INHALATION ×2 (07:52→20:56)
--- NOTE | 2021-12-22 09:47 | PC.CHAP ---
Pastoral Care Encounter/Spiritual Assessment Type of Contact [] Declined him specialist visit [] Patient/Family/Request visit [] Outpatient visit [] Follow-up visit [] Physician referral [] Code/Alert [x] Routine visit [] Staff referral [] Actively dying [] Patient sleeping [] Family support [] [] Out of room [] Palliative care [] [] Receiving care in room [] Pre-surgical visit [] Trauma [] Long length of stay [] ICU visit [] Other: Relational/Emotional Strength [] Patient feels connected with others/family/visitors/staff [] Distress [] Loneliness/isolation [] Abandonment Spirituality of Patient [x] Person of Chichi [] Attends Rastafarian of their [place] [x] Believes in Prayer [] Reads Bible or Jehovah'S Witness materials [] There are Spiritual issues to be addressed Child Care Provider Interventions x [x] Prayer [] Active listening [x] Non-anxious presence [] Spiritual/emotional support [] Crisis/trauma care [] Spiritual counseling [] Bereavement support [] Provided bereavement packet [] Provided Bible/devotional materials [] Provided toy/stuffed animal, coloring book to patient or family member [] Provided Communion [] Anointing/[place] [] Salvation [x] Completed spiritual assessment [] Other: Impact on Illness or Injury [] Angry [] Fearful [] Anxious [] Often cries [] Exhaustion [] Unable to work [] Unable to attend latter day [] Unable to walk/stand [] Unable to read [] Unable to drive [] Unable to eat/drink [] Unable to sleep [] Unable to be with family [] Patient intubated [] Other: Summary Time spent with patient
[2021-12-22] MEDS: cholecalciferol (vitamin D3) 1,000 unit Tablet 1000 UNIT PO (10:06)
[2021-12-22] MEDS: ascorbic acid 500 mg Tablet PO ×2 (10:06→18:43)
[2021-12-22] MEDS: zinc gluconate 50 mg Tablet PO (10:06)
--- NOTE | 2021-12-22 11:02 | P.PN_ITS ---
Subjective Subjective: Patient was seen this morning, he continues to complain of a wheezing, but is feeling better, his hepatitis C was positive, he notes that he has a history of hepatitis C, no fevers, no chills Vitals/I&O/Wt Last Vital Signs Temp 98.2 F 12/22/21 04:00 Pulse 88 12/22/21 07:53 Resp 20 H 12/22/21 07:53 BP 149/78 12/22/21 04:00 Pulse Ox 92 12/22/21 07:53 12/21/21 12/22/21 12/22/21 22:59 06:59 14:59 Intake Total 1100 / 1100 1480 / 2580 1333 / 1333 Output Total 400 / 400 300 / 700 400 / 400 Balance 700 / 700 1180 / 1880 933 / 933 Weight last 48 hrs Weight 81.737 kg Weight 81.737 kg Weight 83.915 kg Physical Exam Const: COMMON NORMALS: no acute distress and patient oriented x3 Resp: COMMON NORMALS: normal respiratory effort, No retractions and No use of accessory muscles AUSCULTATION: wheezes Cardio: COMMON NORMALS: regular rate, regular rhythm, S1 normal heart sound present and S2 normal heart sound present RATE: regular rate RHYTHM: regular rhythm HEART SOUNDS: S1 normal heart sound present and S2 normal heart sound present GI: COMMON NORMALS: Normal to inspection, nondistended, normoactive bowel sounds present, Soft to palpation, non-tender and No hepatosplenomegaly present PALPATION: Yes Soft to palpation and Yes No hepatosplenomegaly present Extremity: COMMON NORMALS: no pedal edema Neuro: COMMON NORMALS: patient oriented x3 Psych: COMMON NORMALS: mental status grossly normal Data : 12/22/21 02:30 12/22/21 02:30 Micro: Microbiology 12/21/21 16:50 Blood Culture - Preliminary Blood SPECIMEN COLLECTED 12/21/21 14:47 Blood Culture - Preliminary Blood SPECIMEN COLLECTED A&P Assessment and plan (1) Asthma exacerbation: Status: Acute (2) Cellulitis: Status: Acute (3) Pneumonia: Status: Acute (4) Hypoxia: Status: Acute (5) IV drug abuse: Status: Acute (6) Hepatitis C: Status: Acute Plan Acute hypoxia -Requiring 4 L -Multifactorial from viral pneumonia, asthma exacerbation -Sputum cultures, blood cultures, urine cultures, viral culture -Monitor respiratory status closely -Albuterol, budesonide -Solu-Medrol 60 every 8 -Continues to have wheezing, give 2 g of mag -Vancomycin and Zosyn for antibiotic coverage -Covid PCR, rapid flu -COVID-19 precautions -Vitamin C, vitamin D, zinc, incentive spirometer, flutter valve -Full code -Lovenox for DVT prophylaxis History of IV drug abuse -Cardiac echocardiogram to evaluate for endocarditis -Follow blood cultures -Follow inflammatory markers Cellulitis -Multiple cellulitic areas from IV drug abuse, scratching -Possible chancres from syphilis? -For now broad-spectrum antibiotic therapy -Testing as above Attestations Medical Necessity Statement*: Patient requires hospitalization for asthma exacerbation, hypoxia, Coding Level of Care Code Acute Tax Services Specialist for Yenni Gruber Diagnoses Asthma exacerbation J45.901 Cellulitis L03.90 Pneumonia J18.9 Hypoxia R09.02 IV drug abuse F19.10 Hepatitis C B19.20
[2021-12-22] MEDS: magnesium sulfate premix 2 GM/50 ML PIGGYBACK IV (11:33)
[2021-12-22 13:30] LABS: Adenovirus Not Detected (NOT DETECT); Chlamydia Pneumoniae Not Detected (NOT DETECT); Coronavirus 229E,HKU1,NL63,OC4 Not Detected (NOT DETECT); Human Metapneumovirus Not Detected (NOT DETECT); Human Rhinovirus/Enterovirus Not Detected (NOT DETECT); Influenza A Not Detected (NOT DETECT); Influenza A H1 Not Detected (NOT DETECT); Influenza A H1-2009 Not Detected (NOT DETECT); Influenza A H3 Not Detected (NOT DETECT); Influenza B Not Detected (NOT DETECT); Mycoplasma Pneumoniae Not Detected (NOT DETECT); Parainfluenza Virus Type 1 Not Detected (NOT DETECT); Parainfluenza Virus Type 2 Not Detected (NOT DETECT); Parainfluenza Virus Type 3 Not Detected (NOT DETECT); Parainfluenza Virus Type 4 Not Detected (NOT DETECT); Respiratory Syncytial Virus A Not Detected (NOT DETECT); Respiratory Syncytial Virus B Not Detected (NOT DETECT); SARS-COV-2 Not Detected (NOT DETECT)
[2021-12-22] MEDS: nicotine 21 mg Patch 1 PATCH TRANSDERMA (15:42)
[2021-12-22] MEDS: pantoprazole 40 mg SDV IVP (18:01)
[2021-12-22] MEDS: enoxaparin 40 mg/0.4 mL Syringe SUBCUT (18:43)
[2021-12-23] VITALS (16 sets, daily range): BP systolic 136–154; BP diastolic 68–88; PULSE 69–109; RESP 17–22; TEMP 36.4–37.2; O2SAT 91–95
--- NOTE | 2021-12-23 00:39 | PC.NURSE ---
0030 Security Mack comes to floor to report a female dropping off some taco gordon food at door for patient. Security saw a pill in a clear wrapper sticking out of bag. Security notified Kvng Quesada RN and this nurse. Security Mack, Sangita RN, and Radha RN go to pt room. Security asks girlfriend to step out of room. Security reports what was found in food bag to patient. Patient replies that his step sister Karen was supposed to bring him some food about 4 hrs ago and he figured she forgot. He says he didn't know she was going to put that in the bag. He had told her he wasn't feeling good and she knew it had been a couple days since he had had any drugs so he thinks she was just trying to help him out so he didn't go through withdrawals. Security notifies pt that he will have to report this to the police. Pt voices understanding. Pt calm, cooperative. He asks that we not say anything to girlfriend. Security advises pt that he will likely not be allowed anymore visitors. This nurse calls Dr. Peter, hospitalist to report the event. The pill did not make it to the pt room. Security has it and says he will be turning it over to police. Dr. Peter says to send girlfriend home and no more visitors. Girlfriend and pt notified that girlfriend has to leave. She gathers her belongings and is escorted out by Sangita HERRERA. Vape pen returned to girlfriend prior to leaving. J
[2021-12-23] MEDS: albuterol 8 gm MDI 1 PUFF INHALATION ×4 (03:33→20:05)
[2021-12-23] MEDS: vancomycin 1,500 MG/300 ML PIGGYBACK 200 MG IV (05:30)
[2021-12-23 06:21] LABS: Basophils % 0.1 %; Hematocrit 45.3 % (42.0-52.0); Lymphocytes # 0.8 10^3/uL (0.8-4.8); Lymphocytes % 5.4 %; Mean Corpuscular HGB Conc 33.1 g/dL (30.0-36.0); Mean Corpuscular Hemoglobin 30.7 pg (28.0-34.0); Mean Corpuscular Volume 92.8 fl (80-94); Mean Platelet Volume 11.2 fL (7.4-10.4); Monocytes # 0.6 10^3/uL (0.2-0.9); Monocytes % 4.3 %; Neutrophils # 12.52 10^3/uL (1.8-7.7); Neutrophils % 89.8 %; Nucleated Red Blood Cells % 0 %; Platelet Count 254 10^3/cmm (130-400); Red Blood Count 4.88 10^6/uL (4.1-5.3); Red Cell Distribution Width 11.7 % (12.1-15.1)
[2021-12-23 06:26] LABS: INR 1.03 (0.8-1.2)
[2021-12-23 06:35] LABS: C Reactive Protein 37.6 mg/L (0.0-4.9); Magnesium 2.1 mg/dL (1.7-2.3); Phosphorus 2.7 mg/dL (2.5-4.5)
[2021-12-23 06:37] LABS: Alanine Aminotransferase 22 U/L (0-41); Albumin Level 3.6 g/dL (3.5-5.2); Alkaline Phosphatase 90 IU/L (40-130); Anion Gap 17.8 (5-19); Aspartate Amino Transferase 20 U/L (0-40); Blood Urea Nitrogen 11 mg/dL (6-20); Calcium 9.6 mg/dL (8.5-10.5); Carbon Dioxide 24 mmol/L (22-29); Chloride 100 mmol/L (98-107); Globulin 3.5 g/dL (1.3-4.6); Glomerular Filtration Rate 132.4 mL/min (90-130); Glucose 142 mg/dL (65-115); Lactate (Lactic Acid level) 2.8 mmol/L (0.5-2.2); Osmolality Calculated 286 mOsm/kg (285-295); Potassium 4.8 mmol/L (3.5-5.1); Sodium 137 mmol/L (136-145); Total Bilirubin 0.2 mg/dL (0.15-1.2); Total Protein 7.1 g/dL (6.6-8.7)
[2021-12-23 06:48] LABS: Creatine Phosphokinase 70 U/L (39-308); NT Pro B Type Natriuretic Pept 573 pg/mL (0-125)
[2021-12-23] MEDS: ascorbic acid 500 mg Tablet PO ×2 (07:55→18:06)
[2021-12-23] MEDS: zinc gluconate 50 mg Tablet PO (07:55)
[2021-12-23] MEDS: cholecalciferol (vitamin D3) 1,000 unit Tablet 1000 UNIT PO (07:55)
[2021-12-23] MEDS: nicotine 21 mg Patch 1 PATCH TRANSDERMA (07:56)
[2021-12-23] MEDS: budesonide 0.5 mg/2 mL Neb INHALATION ×2 (08:41→20:05)
--- NOTE | 2021-12-23 11:01 | PC.SOCIAL ---
GRISELDA forms signed by patient and sent back to Eduar Cunningham.
--- NOTE | 2021-12-23 11:59 | PM.PN ---
Subjective Subjective: Patient was seen this morning, he tells me he is feeling better on room air, continues to have wheezing, according to nursing staff, patient had [employer] delivered to the hospital, when he was examined, there seem to be drugs hidden inside the [employer], patient is not allowed to have any visitors, is not allowed to have anything delivered to the hospital, he has a one-to-one sitter Vitals/I&O/Wt Last Vital Signs Temp 97.6 F 12/23/21 07:55 Pulse 73 12/23/21 11:52 Resp 17 12/23/21 11:52 BP 141/74 12/23/21 07:55 Pulse Ox 91 12/23/21 11:52 12/22/21 12/23/21 12/23/21 22:59 06:59 14:59 Intake Total 920 / 2793 400 / 3193 700 / 700 Balance 920 / 1393 400 / 1793 700 / 700 Weight last 48 hrs Weight 79.878 kg Weight 81.737 kg Weight 81.737 kg Weight 83.915 kg Physical Exam Const: COMMON NORMALS: no acute distress and patient oriented x3 Resp: COMMON NORMALS: normal respiratory effort, No retractions and No use of accessory muscles AUSCULTATION: wheezes Cardio: COMMON NORMALS: regular rate, regular rhythm, S1 normal heart sound present and S2 normal heart sound present RATE: regular rate RHYTHM: regular rhythm HEART SOUNDS: S1 normal heart sound present and S2 normal heart sound present GI: COMMON NORMALS: Normal to inspection, nondistended, normoactive bowel sounds present, Soft to palpation, non-tender and No hepatosplenomegaly present PALPATION: Yes Soft to palpation and Yes No hepatosplenomegaly present Extremity: COMMON NORMALS: no pedal edema Neuro: COMMON NORMALS: patient oriented x3 Data : 12/23/21 06:07 12/23/21 06:07 Micro: Microbiology 12/21/21 16:50 Blood Culture - Preliminary Blood NEGATIVE TO DATE 12/21/21 14:47 Blood Culture - Preliminary Blood NEGATIVE TO DATE 12/21/21 17:12 Chlamydia trachomatis (SCOTT) - Final Urine Random Neisseria gonorrhoeae (SCOTT) - Final A&P Assessment and plan (1) Asthma exacerbation: Status: Acute (2) Cellulitis: Status: Acute (3) Pneumonia: Status: Acute (4) Hypoxia: Status: Acute (5) IV drug abuse: Status: Acute (6) Hepatitis C: Status: Acute Plan Acute hypoxia -Currently on room air, continues to have wheezing -Multifactorial from viral pneumonia, asthma exacerbation -Sputum cultures, blood cultures, urine cultures, viral culture -Monitor respiratory status closely -Albuterol, budesonide -Solu-Medrol 60 every 8 -Continues to have wheezing, but overall improved -Vancomycin and Zosyn for antibiotic coverage -Covid PCR, rapid flu negative -Vitamin C, vitamin D, zinc, incentive spirometer, flutter valve -Full code -Lovenox for DVT prophylaxis History of IV drug abuse -Cardiac echocardiogram no gross evidence of valvular abnormalities -Follow blood cultures, so far negative -Follow inflammatory markers Cellulitis -Multiple cellulitic areas from IV drug abuse, scratching -For now broad-spectrum antibiotic therapy Due to patient's attempts at sneaking drugs/paraphernalia to the hospital -He is not allowed to have visitors -He is not allowed to have anything delivered to the hospital -Has a one-to-one sitter Attestations Medical Necessity Statement*: Patient requires hospitalization for asthma exacerbation, cellulitis Coding Level of Care Code Acute Finger[facility]inter for [facility] Diagnoses Asthma exacerbation J45.901 Cellulitis L03.90 Pneumonia J18.9 Hypoxia R09.02 IV drug abuse F19.10 Hepatitis C B19.20
[2021-12-23] MEDS: vancomycin 1,500 MG/300 ML PIGGYBACK IV ×2 (13:38→22:25)
[2021-12-23] MEDS: pantoprazole 40 mg SDV IVP (18:25)
[2021-12-24] VITALS (7 sets, daily range): BP systolic 137–145; BP diastolic 69–80; PULSE 59–93; RESP 16–18; TEMP 36.6; O2SAT 90–95
[2021-12-24] MEDS: albuterol 8 gm MDI 1 PUFF INHALATION ×2 (03:11→08:52)
[2021-12-24] MEDS: vancomycin 1,500 MG/300 ML PIGGYBACK IV (05:14)
[2021-12-24 05:49] LABS: Basophils % 0.1 %; Hematocrit 43.3 % (42.0-52.0); Hemoglobin 14.6 g/dL (11.7-16.6); Lymphocytes % 6.8 %; Mean Corpuscular HGB Conc 33.7 g/dL (30.0-36.0); Mean Corpuscular Hemoglobin 30.9 pg (28.0-34.0); Mean Corpuscular Volume 91.5 fl (80-94); Monocytes # 0.5 10^3/uL (0.2-0.9); Monocytes % 3.2 %; Neutrophils # 12.71 10^3/uL (1.8-7.7); Neutrophils % 89.4 %; Nucleated Red Blood Cells % 0 %; Platelet Count 275 10^3/cmm (130-400); Red Blood Count 4.73 10^6/uL (4.1-5.3); Red Cell Distribution Width 11.8 % (12.1-15.1); White Blood Count 14.2 10^3/uL (4.0-10.0)
[2021-12-24 06:12] LABS: Lactate (Lactic Acid level) 1.9 mmol/L (0.5-2.2)
[2021-12-24 06:15] LABS: INR 1.02 (0.8-1.2)
[2021-12-24 06:16] LABS: Alanine Aminotransferase 20 U/L (0-41); Albumin Level 3.5 g/dL (3.5-5.2); Alkaline Phosphatase 89 IU/L (40-130); Aspartate Amino Transferase 16 U/L (0-40); Blood Urea Nitrogen 10 mg/dL (6-20); C Reactive Protein 16.7 mg/L (0.0-4.9); Calcium 9.3 mg/dL (8.5-10.5); Carbon Dioxide 23 mmol/L (22-29); Chloride 103 mmol/L (98-107); Creatine Phosphokinase 39 U/L (39-308); Globulin 2.9 g/dL (1.3-4.6); Glomerular Filtration Rate 158.2 mL/min (90-130); Glucose 153 mg/dL (65-115); Magnesium 2.1 mg/dL (1.7-2.3); NT Pro B Type Natriuretic Pept 353 pg/mL (0-125); Osmolality Calculated 284 mOsm/kg (285-295); Phosphorus 2.6 mg/dL (2.5-4.5); Sodium 136 mmol/L (136-145); Total Bilirubin 0.2 mg/dL (0.15-1.2); Total Protein 6.4 g/dL (6.6-8.7)
[2021-12-24 06:21] LABS: Anion Gap 14.3 (5-19); Potassium 4.3 mmol/L (3.5-5.1)
[2021-12-24] MEDS: budesonide 0.5 mg/2 mL Neb INHALATION (08:52)
[2021-12-24] MEDS: nicotine 21 mg Patch 1 PATCH TRANSDERMA (09:30)
[2021-12-24] MEDS: ascorbic acid 500 mg Tablet PO (09:30)
[2021-12-24] MEDS: cholecalciferol (vitamin D3) 1,000 unit Tablet 1000 UNIT PO (09:30)
[2021-12-24] MEDS: zinc gluconate 50 mg Tablet PO (09:30)
--- NOTE | 2021-12-24 11:07 | PC.NURSE ---
this nurse was asked about possible discharge from patient in morning rounds. nurse informed patient that he was still being treated, his WBC count was elevated and lungs has significant expiratory wheezing. pt verbalized understanding. sitter then notified this nurse at 1050 that pt was on the phone discussing leaving AMA, this nurse went to pt room, and pt asked for AMA paperwork. nurse reinforced importance of treatment and that staying at the hospital was the best course of action, adding that it is his right to leave and he cannot be made to stay. informed Dr Nolasco. pt signed paperwork and left on foot from the floor at 1105. Dr Nolasco inquired to pharmacy of pt, this nurse informed him of pt preferred pharmacy in chart, and dr stated he would send in prescriptions for the patient. 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 pt thanked nurse and verbalized understanding.
--- NOTE | 2021-12-24 13:58 | P.DS_ITS ---
Discharge Providers Date of Admission: 12/21/21 17:21 Date of Discharge: December 24, 2021 Attending Provider at Admission: Yaakov Nolasco MD Attending Provider at Discharge: Yaakov Nolasco MD Diagnoses at Discharge Discharge Diagnosis (1) Asthma exacerbation: Status: Acute (2) Cellulitis: Status: Acute (3) Pneumonia: Status: Acute (4) Hypoxia: Status: Acute (5) IV drug abuse: Status: Acute (6) Hepatitis C: Status: Acute Reason for Visit Reason for Visit: SOB Hospital Course Hospital Course Patient left AMA 12/24/2021, before being examined This is a 31-year-old male with a past medical history of asthma, IV drug abuse, fentanyl abuse, methamphetamine abuse, history of hepatitis C who presents to [facility] due to shortness of breath Patient was admitted to [facility] for acute hypoxia secondary to asthma exacerbation likely viral pneumonia, Covid negative, flu negative, weaned down to room air, continues to have wheezing, measures steroids, inhaler therapy, broad-spectrum antibiotic therapy. Patient left AMA. I will send him inhaler therapy, steroid therapy to the pharmacy History of IV drug abuse, cardiac echocardiogram negative for valvular abnormalities, blood cultures so far unremarkable History of hepatitis C, will need to follow-up with primary care for referral for treatment Cellulitis, multiple areas of cellulitis from IV drug abuse, scratching, managed with broad-spectrum antibiotic therapy, will discharge on oral antibiotic therapy Patient had attempted during his hospitalization to sneak drugs/paraphernalia into the hospital, he tried to sneak in fentanyl pills in tacos from [employer], which was delivered to the hospital. During his hospitalization he was not allowed to have visitors after his attempts to sneak drugs into the hospital, nor was he allowed to have anything delivered to the hospital, required a one-to-one sitter. This should be kept in mind during any future hospitalizations Patient left AGAINST MEDICAL ADVICE Discharge Data Studies Completed and Pending Completed Studies During Hospitalization Category Date Time Status CTA chest CT abdomen pelvis [CT angio chest w abd pel w Cat Scan 12/21/21 14:27 Completed con] Stat XR chest 1V portable [id number] Stat Exams 12/21/21 14:22 Completed CV. echo complete* [id number] Routine Ultrasound 12/21/21 Completed Pending at discharge Category Date Time Status Blood Culture Stat Lab 12/21/21 16:50 Results Drug Screen Serum [Serum Drug Panel 7] Routine Lab 12/21/21 18:02 Received Hepatitis C RNA Viral Load Qnt Routine Lab 12/21/21 20:39 Received Vancomycin Trough Timed Lab 12/24/21 12:00 Ordered Radiology Impressions Chest X-Ray 12/21/21 14:22 IMPRESSION: Unremarkable chest radiograph. Chest/Abdomen/Pelvis CT 12/21/21 14:27 IMPRESSION: 1. No pulmonary embolus. 2. Mild bronchial wall thickening and bilateral patchy areas of ground-glass and interstitial opacities may be secondary to mild viral pulmonary infection. IMPRESSION: No acute abnormality is seen in the abdomen or pelvis. Possible constipation. Laboratory Results WBC 14.2 10^3/uL (4.0-10.0) H 12/24/21 05:35 RBC 4.73 10^6/uL (4.1-5.3) 12/24/21 05:35 Hgb 14.6 g/dL (11.7-16.6) 12/24/21 05:35 Hct 43.3 % (42.0-52.0) 12/24/21 05:35 MCV 91.5 fl (80-94) 12/24/21 05:35 MCH 30.9 pg (28.0-34.0) 12/24/21 05:35 MCHC 33.7 g/dL (30.0-36.0) 12/24/21 05:35 RDW 11.8 % (12.1-15.1) L 12/24/21 05:35 Plt Count 275 10^3/cmm (130-400) 12/24/21 05:35 MPV 11.0 fL (7.4-10.4) H 12/24/21 05:35 Neut % (Auto) 89.4 % 12/24/21 05:35 Lymph % (Auto) 6.8 % 12/24/21 05:35 [place] % (Auto) 3.2 % 12/24/21 05:35 Eos % (Auto) 0.0 % 12/24/21 05:35 Baso % (Auto) 0.1 % 12/24/21 05:35 Neut # (Auto) 12.71 10^3/uL (1.8-7.7) H 12/24/21 05:35 Lymph # (Auto) 1.0 10^3/uL (0.8-4.8) 12/24/21 05:35 [place] # (Auto) 0.5 10^3/uL (0.2-0.9) 12/24/21 05:35 Eos # (Auto) 0.0 10^3/uL (0.0-0.8) 12/24/21 05:35 Baso # (Auto) 0.0 10^3/uL (0.0-0.1) 12/24/21 05:35 Nucleated RBC % (auto) 0 % 12/24/21 05:35 Nucleated RBCs # 0.0 /100WBC 12/24/21 05:35 PT 13.70 SECONDS (12.1-14.9) 12/24/21 05:35 INR 1.02 (0.8-1.2) 12/24/21 05:35 Specimen Type Arterial 12/21/21 14:45 Sample Site Radial, right 12/21/21 14:45 ABG pH 7.42 (7.35-7.45) 12/21/21 14:45 ABG pCO2 45.6 mmHg (35-45) H 12/21/21 14:45 ABG pO2 75.8 mmHg (80.0-100.0) L 12/21/21 14:45 ABG HCO3 29.6 mmol/L (22-26) H 12/21/21 14:45 ABG O2 Saturation 96.2 12/21/21 14:45 ABG Base Excess 4.2 mmol/L (-2.0-2.0) H 12/21/21 14:45 Aristides Test Pos 12/21/21 14:45 A-a O2 Gradient 16.5 mmHg (5-10) H 12/21/21 14:45 Hematocrit 47.1 % (42-52) 12/21/21 14:45 Hgb O2 Saturation 94.1 % (95-100) L 12/21/21 14:45 Carboxyhemoglobin 1.1 %THgb (0.4-20.1) 12/21/21 14:45 Methemoglobin 1.1 % (0.4-1.5) 12/21/21 14:45 Total Hemoglobin 15.4 g/dL (14-18) 12/21/21 14:45 Sodium 134.0 mmol/L (131-143) 12/21/21 14:45 Potassium 4.0 mmol/L (3.5-5.0) 12/21/21 14:45 Glucose 105.0 mg/dL (70-115) 12/21/21 14:45 Ionized Calcium 1.2 mmol/L (1.1-1.4) 12/21/21 14:45 O2 Delivery Device Nc 12/21/21 14:45 O2 Liters/Min 4.0 % 12/21/21 14:45 FiO2 36.0 % 12/21/21 14:45 Armature [employer] Rep[employer] Helper ID glc 12/21/21 14:45 Sodium 136 mmol/L (136-145) 12/24/21 05:35 Potassium 4.3 mmol/L (3.5-5.1) 12/24/21 05:35 Chloride 103 mmol/L (98-107) 12/24/21 05:35 Carbon Dioxide 23 mmol/L (22-29) 12/24/21 05:35 Anion Gap 14.3 (5-19) 12/24/21 05:35 BUN 10 mg/dL (6-20) 12/24/21 05:35 Creatinine 0.6 mg/dL (0.7-1.2) L 12/24/21 05:35 GFR Calculation 158.2 mL/min (90-130) H 12/24/21 05:35 Glucose 153 mg/dL (65-115) H 12/24/21 05:35 POC Glucose 145 mg/dL (70-110) H 12/22/21 00:35 Estimat Average Glucose 100 12/21/21 14:47 Hemoglobin A1c 5.1 % (4.0-6.0) 12/21/21 14:47 Calculated Osmolality 284 mOsm/kg (285-295) L 12/24/21 05:35 Lactic Acid 1.2 mmol/L (0.5-2.2) 12/21/21 18:02 Lactate 1.9 mmol/L (0.5-2.2) 12/24/21 05:35 Calcium 9.3 mg/dL (8.5-10.5) 12/24/21 05:35 Phosphorus 2.6 mg/dL (2.5-4.5) 12/24/21 05:35 Magnesium 2.1 mg/dL (1.7-2.3) 12/24/21 05:35 Total Bilirubin 0.2 mg/dL (0.15-1.2) 12/24/21 05:35 AST 16 U/L (0-40) 12/24/21 05:35 ALT 20 U/L (0-41) 12/24/21 05:35 Alkaline Phosphatase 89 IU/L (40-130) 12/24/21 05:35 Creatine Kinase 39 U/L (39-308) 12/24/21 05:35 Troponin T Baseline 9 ng/L (0-15) 12/21/21 14:47 Troponin T 120 Minute 6.49 ng/L (0-15) 12/21/21 16:50 Delta Troponin T -2.51 ABS# (0-10) L 12/21/21 16:50 Troponin T Hi Sens 6Hr 7.60 ng/L (0-15) 12/21/21 20:05 Troponin T Hi Sens 6Hr Delta -1.40 ng/L (0-12) L 12/21/21 20:05 C-Reactive Protein 16.7 mg/L (0.0-4.9) H 12/24/21 05:35 NT-Pro-B Natriuret Pep 353 pg/mL (0-125) H 12/24/21 05:35 Total Protein 6.4 g/dL (6.6-8.7) L 12/24/21 05:35 Albumin 3.5 g/dL (3.5-5.2) 12/24/21 05:35 Globulin 2.9 g/dL (1.3-4.6) 12/24/21 05:35 Lipase 11 U/L (13-60) L 12/21/21 14:47 Procalcitonin 0.06 ng/mL (0-0.5) 12/22/21 02:30 TSH 0.66 uIU/mL (0.27-4.20) 12/21/21 18:02 Urine Color Yellow (Yellow) 12/21/21 17:12 Urine Appearance Clear (CLEAR) 12/21/21 17:12 Urine pH 7 (5-7) 12/21/21 17:12 Ur Specific [place] 1.010 (1.005-1.030) 12/21/21 17:12 Urine Protein Neg (Negative) 12/21/21 17:12 Urine Glucose (UA) Norm (Normal) 12/21/21 17:12 Urine Ketones 1+ (Negative) H 12/21/21 17:12 Urine Blood Neg (Negative) 12/21/21 17:12 Urine Nitrate Negative (Negative) 12/21/21 17:12 Urine Bilirubin Neg (Negative) 12/21/21 17:12 Urine Urobilinogen 1 mg/dL (Negative) H 12/21/21 17:12 Ur Leukocyte Esterase Negative (Negative) 12/21/21 17:12 Nasal Influ A H1 2008 PCR Not detected (NOT DETECT) 12/21/21 17:28 RSV Nasal Swab Cancelled 12/21/21 17:28 RSV Nasal Swab Int Cntl Cancelled 12/21/21 17:28 Vancomycin Trough 8.0 ug/mL (10-15) L 12/22/21 20:21 Urine Opiates Screen Negative ng/mL (Negative) 12/21/21 17:12 Ur Barbiturates Screen Negative ng/mL (Negative) 12/21/21 17:12 Ur Phencyclidine Scrn Negative ng/mL (Negative) 12/21/21 17:12 Ur Amphetamines Screen Positive ng/mL (Negative) H 12/21/21 17:12 U Benzodiazepines Scrn Positive ng/mL (Negative) H 12/21/21 17:12 Urine Cocaine Screen Positive ng/mL (Negative) H 12/21/21 17:12 U Marijuana (THC) Screen Negative ng/mL (Negative) 12/21/21 17:12 Ethyl Alcohol < 10 mg/dL (0-10) 12/21/21 18:02 RPR Nonreactive (Nonreactive) 12/21/21 18:02 Adenovirus (PCR) Cancelled 12/21/21 17:28 Coronavirus 229E (PCR) Not detected (NOT DETECT) 12/22/21 11:35 Hepatitis A IgM Ab Non-reactive (Nonreactive) 12/21/21 18:02 Hep Bs Antigen Non-reactive (Nonreactive) 12/21/21 18:02 Hep B Core IgM Ab Non-reactive (Nonreactive) 12/21/21 18:02 Hepatitis C Antibody Reactive (Nonreactive) H 12/21/21 18:02 HIV 1&2 Ab & HIV 1 Ag Non-reactive (Non-Reactiv) 12/21/21 18:02 HIV 1&2 Antibody Non-reactive (Non-Reactiv) 12/21/21 18:02 Human Metapneumovir PCR Cancelled 12/21/21 17:28 Influenza A (RT-PCR) Cancelled 12/21/21 17:28 Influenza A (H1) PCR Cancelled 12/21/21 17:28 Influenza A (H1) PCR Not detected (NOT DETECT) 12/21/21 17:28 Influenza A (H3) PCR Cancelled 12/21/21 17:28 Influenza A (H3) PCR Not detected (NOT DETECT) 12/21/21 17:28 Influenza Type A Ag Cancelled 12/21/21 17:28 Influenza Type A (PCR) Not detected (NOT DETECT) 12/21/21 17:28 Influenza Type B Ag Cancelled 12/21/21 17:28 Influenza B (RT-PCR) Cancelled 12/21/21 17:28 Influenza Type B (PCR) Not detected (NOT DETECT) 12/21/21 17:28 Parainfluenzae Type 1 Cancelled 12/21/21 17:28 Parainfluenzae Type 2 Cancelled 12/21/21 17:28 Parainfluenzae Type 3 Cancelled 12/21/21 17:28 RSV Ab Comment Cancelled 12/21/21 17:28 Rhinovirus (PCR) Cancelled 12/21/21 17:28 SARS-CoV-2 (PCR) Not detected (NOT DETECT) 12/22/21 11:35 Vitals Last Vital Signs Temp 97.9 F 12/24/21 11:20 Pulse 59 L 12/24/21 11:20 Resp 16 12/24/21 11:20 BP 137/69 12/24/21 11:20 Pulse Ox 91 12/24/21 11:20 Discharge Plan Discharge Patient Disposition: Left Against Medical Advice Condition: Stable Prescriptions: No Action buprenorphine-naloxone [Suboxone] 2-0.5 mg film 1 film buccal DAILY 0RF Rx Instructions: place 1 strip/tab under (each) side of tongue sulfamethoxazole-trimethoprim [Bactrim DS] 800-160 mg tablet 1 tab PO BID 10 Days Qty: 20 0RF Patient Instructions: Opioid Safety Discharge Attestations Time Spent in Discharge Care*: less than 30 min Quality Metrics Clinical Quality Measures [ No reported AMI, CVA or VTE this stay] Coding Level of Care Code Acute [facility] note Diagnoses Asthma exacerbation J45.901 Cellulitis L03.90 Pneumonia J18.9 Hypoxia R09.02 IV drug abuse F19.10 Hepatitis C B19.20
[2021-12-24 19:57] LABS: HEP C RNA Viral Load Quant 2.58 Log IU/mL (NOT DETECTED); HEP C RNA Viral Load Quant 382 IU/mL (NOT DETECTED)
[2021-12-31 09:57] LABS: Amphetamine POSITIVE; Amphetamines negative; Barbiturates negative; Benzodiazepines negative; Cocaine Metabolites negative; Marijuana(Tetrahydrocannabino) negative; Methamphetamine 530 ng/mL; Methylenedioxyamphetamine negative; Methylenedioxymethamphetamine negative; Opiates negative; PCP (Phencyclidine) negative
== END 2021-12-24 11:05 | disposition left against medical advice (07) | DRG 202 ==
LOC: ER 17:44 → MEDSURG 18:46
PROVIDERS: Admitting Provider Family Medicine; Emergency Provider Family Medicine; Visit Provider Family Medicine
DX: J45.901 Unspecified asthma with (acute) exacerbation (principal); J96.01 Acute respiratory failure with hypoxia; J18.9 Pneumonia, unspecified organism; L03.312 Cellulitis of back [any part except buttock and flank]; L03.313 Cellulitis of chest wall; L03.114 Cellulitis of left upper limb; F15.10 Other stimulant abuse, uncomplicated; F11.10 Opioid abuse, uncomplicated; F17.210 Nicotine dependence, cigarettes, uncomplicated; B19.20 Unspecified viral hepatitis C without hepatic coma; Z53.21 Procedure and treatment not carried out due to patient leaving prior to being seen by health care provider
CPT/HCPCS: 36415; 36416; 36600; 71045; 71275; 74177; 80051; 80053; 80074; 80202; 80306; 80307; 81003; 82330; 82550; 82805; 82962; 83036; 83605; 83690; 83735; 83880; 84100; 84145; 84443; 84484; 85025; 85610; 86140; 86592; 87040; 87491; 87522; 87591; 87631; 87635; 87806; 93005; 93306; 94640; 96365; 96366; 96367; 96372; 96375; 99285; C9113; J0743; J1200; J1650; J1956; J2920; J2930; J3370; J3475; J3535; J7050; J7626; Q9967

== ENCOUNTER 2022-07-16 02:10 | Emergency (ER) | payer MEDICAID, SELFPAY ==
[2022-07-16 02:12] VITALS: BP 156/91; PULSE 95; RESP 22; TEMP 36.7; O2SAT 100; BMI 25.0
--- NOTE | 2022-07-16 02:21 | ECG_ITS ---
[facility] Test Date: 2022-07-16 Pat Name: Dillan Brasher Department: Room: Gender: Male Distribution Tech: : 1990 Requested By: Navarro Onofre Order Number: [id number] Jeevan MD: Issa Eason M.D. Measurements Intervals [place] Rate: 76 P: 76 NV: 124 QRS: 86 QRSD: 98 T: 73 QT: 357 QTc: 402 Interpretive Statements SINUS RHYTHM INTERPRETATION BASED ON A DEFAULT AGE OF 40 YEARS Compared to ECG 12/21/2021 22:16:18 No significant changes Electronically Signed On 07-16-2022 8:37:16 CDT by Issa Eason M.D. [email or web address]
--- NOTE | 2022-07-16 02:23 | CTR_ITS ---
PROCEDURE INFORMATION: Exam: CT Head Without Contrast Exam date and time: 07/16/2022 2:49 AM Age: 32 years old Clinical indication: Altered mental status/memory loss and other: Overdose; Additional info: AMS TECHNIQUE: Imaging protocol: Computed tomography of the head without contrast. Radiation optimization: All CT scans at this facility use at least one of these dose optimization techniques: automated exposure control; mA and/or kV adjustment per patient size (includes targeted exams where dose is matched to clinical indication); or iterative reconstruction. COMPARISON: No relevant prior studies available. RADIATION DOSE METRICS: Total DLP (mGy-cm): 1080.38 FINDINGS: Brain: No acute hemorrhage identified. No large territorial areas of hypoattenuation concerning for ischemic infarct identified. No intracranial mass effect. Cerebral ventricles: The ventricles are within normal limits. Paranasal sinuses: The visualized sinuses are unremarkable. Mastoid air cells: The visualized mastoid air cells are well aerated. Bones/joints: The osseous structures are intact. Soft tissues: Unremarkable. CT/CT head wo con* [id number] IMPRESSION: No acute intracranial abnormality.
[2022-07-16 02:24] VITALS: BP 156/91; PULSE 69; RESP 20; O2SAT 99
--- NOTE | 2022-07-16 02:24 | ED_ITS ---
HPI - Neuro Symptoms/Deficit General: Chief Complaint: Neuro Symptoms/Deficit Stated Complaint: AMS Time Seen by Provider: 07/16/22 02:12 Source: patient, EMS and other (human resources officer) History of Present Illness: 32-year-old male with a history of IV drug abuse including stimulants, and opioids. He has been in snf for 3 days or so. EMS was called to the snf regarding a sudden change in status, with decreased mentation and decreased responsiveness. On their arrival, he was responsive to painful stimuli, and had wide pupils that were minimally reactive but equal. He has since improved in his mental status. He is answering yes and no to que stions. He participates minimally in exam. This sudden change in mental status evidently happened around 1 to 1:30 AM. Onset (ago): minute(s) Timing confirmed by: other Location: other History of same: No Quality: other Relieving factors: none Exacerbating factors: none Associated symptoms: Reports chest pain (per patient), nausea and vomiting (per patient, although no evidence); Deny cough or short of breath Review of Systems General: Reports: ROS unobtainable due to medical condition Const: Denies: fever(s) Card: Reports: chest pain (per patient) GI: Reports: nausea and vomiting (per patient, although no evidence) PFSH ED PFSH: Medical History Allergic reaction History of asthma Surgical History History of tonsillectomy Family History Grandfather Stroke Father Hypertension Social History Smoking and tobacco status: current every day smoker Alcohol intake: never Physical Exam Const: EXAM LIMITATIONS: behavioral limitations GENERAL APPEARANCE: cooperative (minimally) and lethargic; not ill appearing and not frail appearing NUTRITIONAL APPEARANCE: thin ORIENTATION/CONSCIOUSNESS: Yes lethargic HENMT: COMMON NORMALS: normocephalic, atraumatic and Normal external nose present HEAD & SCALP: normocephalic and atraumatic FACE & SINUS: normal facial exam and face symmetric NOSE: Normal external nose present and Normal nares present MOUTH: Normal oral and palatal mucosa present and tongue normal Eye: COMMON NORMALS: conjunctivae normal ALIGNMENT: Yes alignment normal CONJUNCTIVA: Yes conjunctivae normal PUPIL: Yes Dilated pupils bilaterally (but reactive) Neck/C-Spine: GENERAL: Yes trachea midline Chest: CHEST: Yes Symmetrical chest wall rise Resp: COMMON NORMALS: normal respiratory effort, No use of accessory muscles and clear to auscultation bilaterally AUSCULTATION: clear to auscultation bilaterally Cardio: COMMON NORMALS: regular rate and regular rhythm RATE: regular rate RHYTHM: regular rhythm GI: COMMON NORMALS: Normal to inspection, nondistended, normoactive bowel sounds present, Soft to palpation and non-tender PALPATION: Yes Soft to palpation Extremity: COMMON NORMALS: no pedal edema Neuro: FELISHA COMA SCALE: document GCS findings Felisha coma scale eye opening: To sound Felisha coma scale verbal response: Confused Felisha coma scale motor response: Obey commands [place] coma scale total score: 13 SENSORIUM/ORIENTATION: Yes lethargic Course Vital Signs: Vital signs: Vital Signs Temperature 98.1 F 07/16/22 02:12 Pulse Rate 71 07/16/22 04:02 Respiratory Rate 20 H 07/16/22 04:02 Blood Pressure 166/99 07/16/22 04:02 Pulse Oximetry 93 07/16/22 04:02 Oxygen Delivery Me thod 07/16/22 02:24 MDM - Neuro Symptoms/Deficit Medical Decision Making 32-year-old male with now normalizing mental status. His heart rate has been around 100, sinus, with sinus arrhythmia. He is mildly hypertensive. CBC is normal. BMP is normal. Lab Data : 07/16/22 02:46 07/16/22 02:[address] 07/16/22 02:23 IMPRESSION: No acute intracranial abnormality. Laboratory Results WBC 9.7 10^3/uL (4.0-10.0) 07/16/22 02:46 RBC 4.99 10^6/uL (4.1-5.3) 07/16/22 02:46 Hgb 14.7 g/dL (11.7-16.6) 07/16/22 02:46 Hct 43.0 % (42.0-52.0) 07/16/22 02:46 MCV 86.2 fl (80-94) 07/16/22 02:46 MCH 29.5 pg (28.0-34.0) 07/16/22 02:46 MCHC 34.2 g/dL (30.0-36.0) 07/16/22 02:46 RDW 13.3 % (12.1-15.1) 07/16/22 02:46 Plt Count 368 10^3/cmm (130-400) 07/16/22 02:46 MPV 9.7 fL (7.4-10.4) 07/16/22 02:46 Neut % (Auto) 57.3 % 07/16/22 02:46 Lymph % (Auto) 34.1 % 07/16/22 02:46 [place] % (Auto) 7.8 % 07/16/22 02:46 Eos % (Auto) 0.1 % 07/16/22 02:46 Baso % (Auto) 0.5 % 07/16/22 02:46 Neut # (Auto) 5.57 10^3/uL (1.8-7.7) 07/16/22 02:46 Lymph # (Auto) 3.3 10^3/uL (0.8-4.8) 07/16/22 02:46 [place] # (Auto) 0.8 10^3/uL (0.2-0.9) 07/16/22 02:46 Eos # (Auto) 0.0 10^3/uL (0.0-0.8) 07/16/22 02:46 Baso # (Auto) 0.1 10^3/uL (0.0-0.1) 07/16/22 02:46 Nucleated RBC % (auto) 0 % 07/16/22 02:46 Nucleated RBCs # 0.0 /100WBC 07/16/22 02:46 Sodium 136 mmol/L (136-145) 07/16/22 02:46 Potassium 4.0 mmol/L (3.5-5.1) 07/16/22 02:46 Chloride 98 mmol/L (98-107) 07/16/22 02:46 Carbon Dioxide 26 mmol/L (22-29) 07/16/22 02:46 Anion Gap 16.0 (5-19) 07/16/22 02:46 BUN 10 mg/dL (6-20) 07/16/22 02:46 Creatinine 0.8 mg/dL (0.7-1.2) 07/16/22 02:46 GFR Calculation 112.8 mL/min (90-130) 07/16/22 02:46 Glucose 102 mg/dL (65-115) 07/16/22 02:46 Calculated Osmolality 281 mOsm/kg (285-295) L 07/16/22 02:46 Calcium 9.6 mg/dL (8.5-10.5) 07/16/22 02:46 Total Bilirubin 0.4 mg/dL (0.15-1.2) 07/16/22 02:46 AST 18 U/L (0-40) 07/16/22 02:46 ALT 19 U/L (0-41) 07/16/22 02:46 Alkaline Phosphatase 109 U/L (40-130) 07/16/22 02:46 Total Protein 8.4 g/dL (6.6-8.7) 07/16/22 02:46 Albumin 4.0 g/dL (3.5-5.2) 07/16/22 02:46 Globulin 4.4 g/dL (1.3-4.6) 07/16/22 02:46 Urine Color Yellow (Yellow) 07/16/22 03:38 Urine Appearance Clear (CLEAR) 07/16/22 03:38 Urine pH 9 (5-7) H 07/16/22 03:38 Ur Specific [place] 1.015 (1.005-1.030) 07/16/22 03:38 Urine Protein Neg (Negative) 07/16/22 03:38 Urine Glucose (UA) Norm (Normal) 07/16/22 03:38 Urine Ketones Negative (Negative) 07/16/22 03:38 Urine Blood Neg (Negative) 07/16/22 03:38 Urine Nitrate Negative (Negative) 07/16/22 03:38 Urine Bilirubin Neg (Negative) 07/16/22 03:38 Prot Sulfosalicylic Acd Negative (Negative) 07/16/22 03:38 Urine Urobilinogen Neg mg/dL (Negative) 07/16/22 03:38 Ur Leukocyte Esterase Negative (Negative) 07/16/22 03:38 Salicylates 0.5 mg/dL (3-10) L 07/16/22 02:46 Urine Opiates Screen Positive ng/mL (Negative) H 07/16/22 03:38 Acetaminophen 7.7 ug/mL (10-30) L 07/16/22 02:46 Ur Barbiturates Screen Negative ng/mL (Negative) 07/16/22 03:38 Ur Phencyclidine Scrn Negative ng/mL (Negative) 07/16/22 03:38 Ur Amphetamines Screen Positive ng/mL (Negative) H 07/16/22 03:38 U Benzodiazepines Scrn Negative ng/mL (Negative) 07/16/22 03:38 Urine Cocaine Screen Negative ng/mL (Negative) 07/16/22 03:38 U Marijuana (THC) Screen Negative ng/mL (Negative) 07/16/22 03:38 Ethyl Alcohol < 10 mg/dL (0-10) 07/16/22 02:46 Discharge Plan Discharge Patient Disposition: Home Clinical Impression: Substance abuse, Altered mental status Condition: Stable Prescriptions: No Action buprenorphine-naloxone [Suboxone] 2-0.5 mg film 1 film buccal DAILY Rx Instructions: place 1 strip/tab under (each) side of tongue sulfamethoxazole-trimethoprim [Bactrim DS] 800-160 mg tablet 1 tab PO BID 10 Days Qty: 20 0RF Discharge Orders: Discharge ED (Routine); Ordered 07/16/22 Ordered By: Navarro Amos Patient Instructions: Altered Mental Status (ED) Activity Restrictions/Additional Instructions: Return for fever greater than 100, worsening mental status, vomiting liquids or medications, other concerning symptoms. Coding Level of Care Code ED Tool Design Drafter for Yenni Fwayush Exam Comprehensive
[2022-07-16 02:52] LABS: Basophils # 0.1 10^3/uL (0.0-0.1); Basophils % 0.5 %; Eosinophils % 0.1 %; Hemoglobin 14.7 g/dL (11.7-16.6); Lymphocytes # 3.3 10^3/uL (0.8-4.8); Lymphocytes % 34.1 %; Mean Corpuscular HGB Conc 34.2 g/dL (30.0-36.0); Mean Corpuscular Hemoglobin 29.5 pg (28.0-34.0); Mean Corpuscular Volume 86.2 fl (80-94); Mean Platelet Volume 9.7 fL (7.4-10.4); Monocytes # 0.8 10^3/uL (0.2-0.9); Monocytes % 7.8 %; Neutrophils # 5.57 10^3/uL (1.8-7.7); Neutrophils % 57.3 %; Nucleated Red Blood Cells % 0 %; Platelet Count 368 10^3/cmm (130-400); Red Blood Count 4.99 10^6/uL (4.1-5.3); Red Cell Distribution Width 13.3 % (12.1-15.1); White Blood Count 9.7 10^3/uL (4.0-10.0)
[2022-07-16] MEDS: sodium chloride 0.9% 1,000 ML 999 ML IV (02:59)
[2022-07-16 03:16] VITALS: BP 156/95; PULSE 67; RESP 20; O2SAT 100
[2022-07-16 03:16] LABS: Acetaminophen 7.7 ug/mL (10-30); Alanine Aminotransferase 19 U/L (0-41); Alkaline Phosphatase 109 U/L (40-130); Aspartate Amino Transferase 18 U/L (0-40); Blood Urea Nitrogen 10 mg/dL (6-20); Calcium 9.6 mg/dL (8.5-10.5); Carbon Dioxide 26 mmol/L (22-29); Chloride 98 mmol/L (98-107); Globulin 4.4 g/dL (1.3-4.6); Glomerular Filtration Rate 112.8 mL/min (90-130); Glucose 102 mg/dL (65-115); Osmolality Calculated 281 mOsm/kg (285-295); Salicylate 0.5 mg/dL (3-10); Sodium 136 mmol/L (136-145); Total Bilirubin 0.4 mg/dL (0.15-1.2); Total Protein 8.4 g/dL (6.6-8.7)
[2022-07-16 03:30] LABS: Alcohol Level < 10 mg/dL (0-10)
[2022-07-16 03:42] LABS: Add Urine Microscopic? NO; Charge for UA Resulting for Rev
[2022-07-16 03:53] LABS: Amphetamines Screen Urine Positive (Negative); Barbiturates Screen Urine Negative (Negative); Benzodiazepines Screen Urine Negative (Negative); Cocaine Screen Urine Negative (Negative); Opiate Screen Urine Positive (Negative); PCP Screen Urine Negative (Negative); THC Screen Urine Negative (Negative)
[2022-07-16 03:56] LABS: Urine Appearance Clear (CLEAR); Urine Color Yellow (Yellow)
[2022-07-16 03:57] LABS: Bilirubin Urine Neg (Negative); Blood Urine Neg (Negative); Glucose Urine UA Norm (Normal); Ketones Urine Negative (Negative); Leukocyte Esterase Urine Negative (Negative); Nitrate Urine Negative (Negative); Protein Urine Neg (Negative); Specific Gravity, Urine 1.015 (1.005-1.030); Sulfosalicylic Acid Urine Negative (Negative); Urobilinogen Urine Neg (Negative); pH Urine 9 (5-7)
[2022-07-16 04:02] VITALS: BP 166/99; PULSE 71; RESP 20; O2SAT 93
== END 2022-07-16 04:35 | disposition home or self-care (01) ==
PROVIDERS: Emergency Provider Emergency Medicine
DX: R41.82 Altered mental status, unspecified (principal); F19.10 Other psychoactive substance abuse, uncomplicated; F17.210 Nicotine dependence, cigarettes, uncomplicated
CPT/HCPCS: 70450; 80053; 80306; 80307; 81003; 85025; 93005; 96360; 99285; J7030

== ENCOUNTER 2022-09-08 09:00 | Emergency (ER) | payer MEDICAID, SELFPAY ==
--- NOTE | 2022-09-08 09:14 | XRR_ITS ---
PROCEDURE INFORMATION: Exam: XR Chest Exam date and time: 09/08/2022 10:24 AM Age: 32 years old Clinical indication: Cough and fever; Patient HX: Chest pains and hallucinations x 2 days; Additional info: Dyspnea/cough TECHNIQUE: Imaging protocol: Radiologic exam of the chest. Views: 1 view. COMPARISON: CR XR chest 1V portable [id number] 12/21/2021 2:55 PM FINDINGS: Lungs: The lung parenchyma is clear. Pleural spaces: No pneumothorax. No pleural effusion. Heart/Mediastinum: The cardiomediastinal silhouette is within normal limits. Bones/joints: Unremarkable. XR/XR chest 1V portable [id number] IMPRESSION: No acute cardiopulmonary abnormality.
--- NOTE | 2022-09-08 09:15 | ECG_ITS ---
[facility] Test Date: 2022-09-08 Pat Name: Dillan Brasher Department: Room: Gender: Male Physical Fitness Teacher: : 1990 Requested By: Gerry Chacko Order Number: [id number] Jeevan MD: Jazmine Yeung M.D. Measurements Intervals [place] Rate: 85 P: 81 WY: 144 QRS: 87 QRSD: 88 T: 74 QT: 369 QTc: 439 Interpretive Statements SINUS RHYTHM POSSIBLE LEFT ATRIAL ENLARGEMENT [-0.1mV P-WAVE IN V1/V2] Compared to ECG 07/16/2022 02:21:34 No significant changes Electronically Signed On 09-09-2022 14:07:42 WIRE INSERTER by Jazmine Yeung M.D. [id number]
[2022-09-08 09:24] VITALS: BP 146/99; PULSE 89; RESP 24; TEMP 36.6; O2SAT 100; BMI 22.5
[2022-09-08 09:40] LABS: Basophils % 0.4 %; Eosinophils # 0.1 10^3/uL (0.0-0.8); Eosinophils % 0.6 %; Hematocrit 50.3 % (42.0-52.0); Hemoglobin 17.3 g/dL (11.7-16.6); Lymphocytes # 3.3 10^3/uL (0.8-4.8); Lymphocytes % 33.7 %; Mean Corpuscular HGB Conc 34.4 g/dL (30.0-36.0); Mean Corpuscular Hemoglobin 30.3 pg (28.0-34.0); Mean Corpuscular Volume 88.1 fl (80-94); Mean Platelet Volume 9.8 fL (7.4-10.4); Monocytes # 0.8 10^3/uL (0.2-0.9); Monocytes % 7.7 %; Neutrophils # 5.56 10^3/uL (1.8-7.7); Neutrophils % 57.3 %; Nucleated Red Blood Cells % 0 %; Platelet Count 416 10^3/cmm (130-400); Red Blood Count 5.71 10^6/uL (4.1-5.3); Red Cell Distribution Width 12.8 % (12.1-15.1); White Blood Count 9.7 10^3/uL (4.0-10.0)
[2022-09-08 09:53] VITALS: BP 146/99; PULSE 83; O2SAT 99
[2022-09-08 09:56] LABS: Troponin(5th) Baseline 12 ng/L (0-15)
[2022-09-08 09:58] LABS: Alanine Aminotransferase 20 U/L (0-41); Albumin Level 4.1 g/dL (3.5-5.2); Alkaline Phosphatase 96 U/L (40-130); Blood Urea Nitrogen 11 mg/dL (6-20); Calcium 10.4 mg/dL (8.5-10.5); Carbon Dioxide 25 mmol/L (22-29); Chloride 97 mmol/L (98-107); Creatine Phosphokinase 155 U/L (39-308); Globulin 4.1 g/dL (1.3-4.6); Glomerular Filtration Rate 112.8 mL/min (90-130); Glucose 91 mg/dL (65-115); Osmolality Calculated 281 mOsm/kg (285-295); Sodium 136 mmol/L (136-145); Total Bilirubin 0.3 mg/dL (0.15-1.2); Total Protein 8.2 g/dL (6.6-8.7)
[2022-09-08 09:59] LABS: Anion Gap 18.4 (5-19); Aspartate Amino Transferase 25 U/L (0-40); Potassium 4.4 mmol/L (3.5-5.1)
--- NOTE | 2022-09-08 10:17 | W.ED.GENADLT ---
HPI - General Adult General: Chief complaint: General Medical Stated complaint: cp, hallucinating Time Seen by Provider: 09/08/22 09:14 Source: patient Mode of arrival: other (law enforcement) History of Present Illness: 32 yo male presents emergency room accompanied by law enforcement. He is currently residing [facility]. He presents complaining of nausea chest discomfort for the last several days. He is previously been using fentanyl on a regular basis has not been getting it daily and started him on Librium Bentyl and Zofran. He has previously been seen for chest pain work-up has been negative. Not having any chest pain at this time. Onset (ago): day(s) Location: chest Radiation: non-radiation Severity: moderate Quality: aching Relieving factors: none Exacerbating factors: none Associated symptoms: Deny chest pain, confusion, cough, diaphoresis, decreased appetite, dyspnea, fevers/chills, headache(s), malaise, nausea, rash, palpitations, seizures, short of breath, syncope, vomiting or weakness Treatments prior to arrival: other (Patient is on clonidine Librium and ondansetron at the correction.) Review of Systems Const: Denies: fever(s), chills, malaise or diaphoresis ENMT: Denies: throat pain, ear or mastoid pain, nasal discharge or nasal congestion Card: Denies: chest pain, palpitations or syncope Resp: Denies: dyspnea GI: Denies: abdominal pain, nausea or vomiting : Denies: flank pain, difficulty urinating, dysuria, urinary frequency or urinary urgency Musc: Denies: neck pain, back pain or extremity pain Skin/Breast: Denies: rash Neuro: Denies: headache(s) or confusion PFSH ED PFSH: Medical History Allergic reaction History of asthma Surgical History History of tonsillectomy Family History Grandfather Stroke Father Hypertension Social History Smoking and tobacco status: current every day smoker Alcohol intake: never Physical Exam Const: COMMON NORMALS: no acute distress GENERAL APPEARANCE: cooperative and comfortable ORIENTATION/CONSCIOUSNESS: Yes awake, Yes oriented to person, Yes oriented to place and Yes oriented to time HENMT: COMMON NORMALS: normocephalic, atraumatic and hearing grossly normal bilaterally HEAD & SCALP: normocephalic and atraumatic Resp: COMMON NORMALS: normal respiratory effort, No retractions, No use of accessory muscles and clear to auscultation bilaterally AUSCULTATION: clear to auscultation bilaterally Cardio: COMMON NORMALS: regular rate, regular rhythm and No murmurs present (Cardio) RATE: regular rate RHYTHM: regular rhythm GI: COMMON NORMALS: Soft to palpation and No hepatosplenomegaly present AUSCULTATION: Yes normoactive bowel sounds PALPATION: Yes Soft to palpation, No Tenderness to palpation present (GI), No Guarding due to palpation present (GI) and Yes No hepatosplenomegaly present Extremity: COMMON NORMALS: normal to inspection, capillary refill normal, no clubbing, cyanosis or edema, no calf tenderness and no pedal edema Neuro: SENSORIUM/ORIENTATION: Yes oriented to person, Yes oriented to place and Yes oriented to time Skin: COMMON NORMALS: no rashes or lesions noted GENERAL SKIN EXAM: no rashes or lesions noted Course Vital Signs: Vital signs: Vital Signs Temperature 98 F 09/08/22 09:24 Pulse Rate 88 09/08/22 11:16 Respiratory Rate 24 H 09/08/22 09:24 Blood Pressure 154/103 09/08/22 11:16 Pulse Oximetry 100 09/08/22 11:16 Oxygen Delivery Sd thod 09/08/22 11:16 [facility] - General Adult Medical Decision Making Exam and labs are unremarkable. To the extent he has chest discomfort I think is most likely from reflux. Will have him use omeprazole. We will use promethazine and lieu of ondansetron. Return to the correction continue other medications. Medical Records I reviewed the patient's medical records. Lab Data I reviewed the patient's lab results. 09/08/22 09:30 09/08/22 09:30 Radiology Impressions Chest X-Ray 09/08/22 09:14 IMPRESSION: No acute cardiopulmonary abnormality. Laboratory Results WBC 9.7 10^3/uL (4.0-10.0) 09/08/22 09:30 RBC 5.71 10^6/uL (4.1-5.3) H 09/08/22 09:30 Hgb 17.3 g/dL (11.7-16.6) H 09/08/22 09:30 Hct 50.3 % (42.0-52.0) 09/08/22 09:30 MCV 88.1 fl (80-94) 09/08/22 09:30 MCH 30.3 pg (28.0-34.0) 09/08/22 09:30 MCHC 34.4 g/dL (30.0-36.0) 09/08/22 09:30 RDW 12.8 % (12.1-15.1) 09/08/22 09:30 Plt Count 416 10^3/cmm (130-400) H 09/08/22 09:30 MPV 9.8 fL (7.4-10.4) 09/08/22 09:30 Neut % (Auto) 57.3 % 09/08/22 09:30 Lymph % (Auto) 33.7 % 09/08/22 09:30 [place] % (Auto) 7.7 % 09/08/22 09:30 Eos % (Auto) 0.6 % 09/08/22 09:30 Baso % (Auto) 0.4 % 09/08/22 09:30 Neut # (Auto) 5.56 10^3/uL (1.8-7.7) 09/08/22 09:30 Lymph # (Auto) 3.3 10^3/uL (0.8-4.8) 09/08/22 09:30 [place] # (Auto) 0.8 10^3/uL (0.2-0.9) 09/08/22 09:30 Eos # (Auto) 0.1 10^3/uL (0.0-0.8) 09/08/22 09:30 Baso # (Auto) 0.0 10^3/uL (0.0-0.1) 09/08/22 09:30 Nucleated RBC % (auto) 0 % 09/08/22 09:30 Nucleated RBCs # 0.0 /100WBC 09/08/22 09:30 Sodium 136 mmol/L (136-145) 09/08/22 09:30 Potassium 4.4 mmol/L (3.5-5.1) 09/08/22 09:30 Chloride 97 mmol/L (98-107) L 09/08/22 09:30 Carbon Dioxide 25 mmol/L (22-29) 09/08/22 09:30 Anion Gap 18.4 (5-19) 09/08/22 09:30 BUN 11 mg/dL (6-20) 09/08/22 09:30 Creatinine 0.8 mg/dL (0.7-1.2) 09/08/22 09:30 GFR Calculation 112.8 mL/min (90-130) 09/08/22 09:30 Glucose 91 mg/dL (65-115) 09/08/22 09:30 Calculated Osmolality 281 mOsm/kg (285-295) L 09/08/22 09:30 Calcium 10.4 mg/dL (8.5-10.5) 09/08/22 09:30 Total Bilirubin 0.3 mg/dL (0.15-1.2) 09/08/22 09:30 AST 25 U/L (0-40) 09/08/22 09:30 ALT 20 U/L (0-41) 09/08/22 09:30 Alkaline Phosphatase 96 U/L (40-130) 09/08/22 09:30 Creatine Kinase 155 U/L (39-308) 09/08/22 09:30 Troponin T Baseline 12 ng/L (0-15) 09/08/22 09:30 Total Protein 8.2 g/dL (6.6-8.7) 09/08/22 09:30 Albumin 4.1 g/dL (3.5-5.2) 09/08/22 09:30 Globulin 4.1 g/dL (1.3-4.6) 09/08/22 09:30 Urine Color Yellow (Yellow) 09/08/22 10:50 Urine Appearance Clear (CLEAR) 09/08/22 10:50 Urine pH 7 (5-7) 09/08/22 10:50 Ur Specific [place] 1.005 (1.005-1.030) 09/08/22 10:50 Urine Protein Neg (Negative) 09/08/22 10:50 Urine Glucose (UA) Norm (Normal) 09/08/22 10:50 Urine Ketones Negative (Negative) 09/08/22 10:50 Urine Blood Neg (Negative) 09/08/22 10:50 Urine Nitrate Negative (Negative) 09/08/22 10:50 Urine Bilirubin Neg (Negative) 09/08/22 10:50 Urine Urobilinogen Neg mg/dL (Negative) 09/08/22 10:50 Ur Leukocyte Esterase Negative (Negative) 09/08/22 10:50 Urine Opiates Screen Negative ng/mL (Negative) 09/08/22 10:50 Ur Barbiturates Screen Negative ng/mL (Negative) 09/08/22 10:50 Ur Phencyclidine Scrn Negative ng/mL (Negative) 09/08/22 10:50 Ur Amphetamines Screen Positive ng/mL (Negative) H 09/08/22 10:50 U Benzodiazepines Scrn Positive ng/mL (Negative) H 09/08/22 10:50 Urine Cocaine Screen Negative ng/mL (Negative) 09/08/22 10:50 U Marijuana (THC) Screen Negative ng/mL (Negative) 09/08/22 10:50 Discharge Plan Discharge Patient Disposition: Home Clinical Impression: Narcotic abuse Condition: Stable Prescriptions: New promethazine 25 mg tablet 25 mg PO Q6H PRN (Reason: nausea and vomiting) Qty: 20 0RF omeprazole 40 mg capsule,delayed release(DR/EC) 40 mg PO DAILY 28 Days Qty: 30 0RF No Action Zofran 4 mg Tablet 8 mg PO BID PRN (Reason: Nausea) Librium 25 mg Capsule 25 mg PO BID PRN (Reason: Anxiety) Bentyl 20 mg Tablet 40 mg PO BID Discharge Orders: Discharge ED (Routine); Ordered 09/08/22 Ordered By: Gerry Galindo Discharge Diet: Usual diet Discharge Activity: Increase activity as tolerated Patient Instructions: Opioid Safety, Pain Management Activity Restrictions/Additional Instructions: Continue current medications. You can use promethazine in place of Zofran as needed for nausea. Coding Level of Care Code ED Wire Cutter for Yenni Gruber
[2022-09-08] MEDS: promethazine 25 mg/mL SDV 1 mL IM (10:48)
[2022-09-08 10:49] VITALS: BP 153/105; PULSE 82; O2SAT 98
[2022-09-08] MEDS: sodium chloride 0.9% 1,000 ML 999 ML IV (10:49)
[2022-09-08 10:58] LABS: Add Urine Microscopic? NO; Charge for UA Resulting for Rev
[2022-09-08 11:00] LABS: Bilirubin Urine Neg (Negative); Blood Urine Neg (Negative); Glucose Urine UA Norm (Normal); Ketones Urine Negative (Negative); Leukocyte Esterase Urine Negative (Negative); Nitrate Urine Negative (Negative); Protein Urine Neg (Negative); Specific Gravity, Urine 1.005 (1.005-1.030); Urine Appearance Clear (CLEAR); Urine Color Yellow (Yellow); Urobilinogen Urine Neg (Negative); pH Urine 7 (5-7)
[2022-09-08 11:09] LABS: Amphetamines Screen Urine Positive (Negative); Barbiturates Screen Urine Negative (Negative); Benzodiazepines Screen Urine Positive (Negative); Cocaine Screen Urine Negative (Negative); Opiate Screen Urine Negative (Negative); PCP Screen Urine Negative (Negative); THC Screen Urine Negative (Negative)
[2022-09-08 11:16] VITALS: BP 154/103; PULSE 88; O2SAT 100
== END 2022-09-08 11:50 | disposition home or self-care (01) ==
PROVIDERS: Emergency Provider Family Medicine
DX: F11.10 Opioid abuse, uncomplicated (principal); F17.210 Nicotine dependence, cigarettes, uncomplicated
CPT/HCPCS: 71045; 80053; 80306; 81003; 82550; 84484; 85025; 93005; 96360; 96372; 99285; J2550; J7030

== ENCOUNTER 2022-09-17 13:27 | Emergency (ER) | payer MEDICAID, SELFPAY ==
[2022-09-17 13:45] VITALS: BP 160/91; PULSE 134; RESP 20; TEMP 37.3; O2SAT 98
--- NOTE | 2022-09-17 15:10 | ED_ITS ---
HPI - Skin/Abscess/Foreign Bdy General: Chief complaint: Skin/Abscess/Foreign Body Stated complaint: Bug bit Time Seen by Provider: 09/17/22 14:33 History of Present Illness: 32-year-old male with a relevant history of MRSA and incarceration who presents with chief complaint of spider bite to the right lateral lower leg. This has been present for several days. He was put on antibiotics for this but states that he does not know the name of the antibiotic. Last night it seemed to be abscessed and so he incised the wound himself and now it is discharging pus. He denies any systemic symptoms. He does have a history of IV drug abuse and hepatitis. Associated symptoms: Deny chills, fever(s), nausea or vomiting Review of Systems General: Reports: 10 or more systems reviewed and unremarkable except in HPI and below Const: Denies: fever(s) or chills Card: Denies: chest pain or syncope Resp: Denies: dyspnea, productive cough or non-productive cough GI: Denies: abdominal pain, nausea, vomiting or diarrhea : Denies: flank pain or dysuria Skin/Breast: Reports: rash, skin tenderness, skin swelling and new lesions Neuro: Denies: headache(s) or weakness in extremities PFSH ED PFSH: Medical History Allergic reaction History of asthma Surgical History History of tonsillectomy Family History Grandfather Stroke Father Hypertension Social History Smoking and tobacco status: current every day smoker Alcohol intake: never Physical Exam Const: COMMON NORMALS: no limitations, alert and well nourished EXAM LIMITATIONS: no altered mental status Eye: COMMON NORMALS: conjunctivae normal CONJUNCTIVA: Yes conjunctivae normal Neck/C-Spine: GENERAL: Yes normal visual inspection and Yes trachea midline Extremity: COMMON NORMALS: normal to inspection Neuro: COMMON NORMALS: moves all extremities, no focal motor deficits and no s ensory deficits noted SENSORIUM/ORIENTATION: Yes alert Psych: COMMON NORMALS: mental status grossly normal, Normal thought process present, cooperative, normal affect and speech normal SPEECH: Yes normal speech THOUGHT PROCESS: Normal thought process present Skin: LESIONS: lesion noted (Cellulitis and abscess lateral right lower leg care home between the knee and) Procedures Abscess I/D Site: lower extremity (Right) Side (if applicable): right Sedation/analgesia: none Local Anesthetic: lidocaine 1% and with epi Amount of anesthesia used (mL): 7 Technique: incised with #11 blade Amount of fluid expressed (mL): 5 Irrigation: No Packing used?: none Course Vital Signs: Vital signs: Vital Signs Temperature 99.1 F 09/17/22 13:45 Pulse Rate 134 H 09/17/22 13:45 Respiratory Rate 20 H 09/17/22 13:45 Blood Pressure 160/91 09/17/22 13:45 Pulse Oximetry 98 09/17/22 13:45 MDM - Skin/Abscess/Foreign Bdy Medicial Decision Making Abscess. S/p I&D. Bactrim DS BID for 10 days, chlorhexidine body soap (Hx of MRSA). Given return precautions. Discharge Plan Discharge Patient Disposition: Home Clinical Impression: Abscess of skin or subcutaneous tissue Condition: Stable Prescriptions: New Bactrim DS 800-160 mg tablet 1 tab PO BID 10 Days Qty: 20 0RF Antiseptic Skin Clnsr(chlorhe) 4 % liquid 1 applic topical DAILY 14 Days Qty: 237 0RF No Action Zofran 4 mg Tablet 8 mg PO BID PRN (Reason: Nausea) Librium 25 mg Capsule 25 mg PO BID PRN (Reason: Anxiety) Bentyl 20 mg Tablet 40 mg PO BID promethazine 25 mg tablet 25 mg PO Q6H PRN (Reason: nausea and vomiting) Qty: 20 0RF omeprazole 40 mg capsule,delayed release(DR/EC) 40 mg PO DAILY 28 Days Qty: 30 0RF Discharge Orders: Discharge ED (Routine); Ordered 09/17/22 Ordered By: Travis Mercedes Discharge Diet: Usual diet Discharge Activity: Resume usual activity Patient Instructions: Abscess (ED), Abscess Incision and Drainage (DC), Opioid Safety, Pain Management Activity Restrictions/Additional Instructions: Take Bactrim antibiotics as prescribed. Use chlorhexidine body wash to clean your skin. If it is getting worse (redness, warmth, streaking, swelling, more painful) then return to ER for repeat eval. Coding Level of Care Code ED Electric Meter Inspector for Chg Fwd Exam Detailed
[2022-09-17] MEDS: sulfamethoxazole-trimeth DS 160-800 mg Tablet 1 TAB PO (15:24)
[2022-09-17] MEDS: acetaminophen 325 mg Tablet 650 MG PO (15:24)
== END 2022-09-17 15:50 | disposition home or self-care (01) ==
PROVIDERS: Emergency Provider Emergency Medicine
DX: L02.415 Cutaneous abscess of right lower limb (principal)
CPT/HCPCS: 10060; 99283

== ENCOUNTER 2022-10-20 16:39 | Emergency (ER) | payer MEDICAID, SELFPAY ==
[2022-10-20 16:57] VITALS: BP 124/75; PULSE 119; RESP 18; TEMP 37.2; O2SAT 98; BMI 22.6
--- NOTE | 2022-10-20 17:23 | ED_ITS ---
Documented by User: Gerry Galindo DO 10/21/22 06:14 HPI - Wound/Laceration General: Chief Complaint: Wound/Laceration Stated Complaint: Left leg sore/swelling Time Seen by Provider: 10/20/22 17:12 Source: patient Mode of arrival: ambulatory History of Present Illness: 32-year-old male presents emergency room with redness and streaking on his left anterior tibia proximal lymphangitis. Began over the last 24 hours. He has a quarter sized eschar on the proximal tibia. He does not have any fever mildly discomfortable in the area. No drainage from the wound. He tried to treat it at home by applying a raw potato topically and it did not improve the symptoms. He has a history of previous methamphetamine use his last use was 3 to 4 days ago he occasionally uses fentanyl when he misses an appointment at the methadone clinic. There were several other small excoriated areas on his extremities and face. Onset (ago): minute(s) Extremity Location: Left: lower leg Patient tetanus UTD: Yes Associated symptoms: Denies chills, fever(s), foreign body sensation, inability to move, nausea, numbness, pain, syncope or vomiting Review of Systems Const: Denies: fever(s) or chills ENMT: Denies: throat pain, ear or mastoid pain, nasal discharge or nasal congestion Card: Denies: chest pain, palpitations, irregular heart rhythm or syncope Resp: Denies: dyspnea, productive cough or non-productive cough GI: Denies: abdominal pain, nausea or vomiting : Denies: flank pain, dysuria, urinary frequency or urinary urgency Skin/Breast: Reports: erythema; Denies: rash or pruritus [facility] ED PFSH: Medical History Allergic reaction History of asthma Surgical History History of tonsillectomy Family History Grandfather Stroke Father Hypertension Social History Smoking and tobacco status: current every day smoker Alcohol intake: never Physical Exam Const: COMMON NORMALS: no acute distress GENERAL APPEARANCE: cooperative and comfortable ORIENTATION/CONSCIOUSNESS: Yes awake, Yes oriented to person, Yes oriented to place and Yes oriented to time HENMT: COMMON NORMALS: normocephalic, atraumatic and hearing grossly normal bilaterally HEAD & SCALP: normocephalic and atraumatic Resp: COMMON NORMALS: normal respiratory effort, No retractions, No use of accessory muscles and clear to auscultation bilaterally AUSCULTATION: clear to auscultation bilaterally Cardio: COMMON NORMALS: regular rate, regular rhythm and No murmurs present (Cardio) RATE: regular rate RHYTHM: regular rhythm GI: COMMON NORMALS: Soft to palpation and No hepatosplenomegaly present AUSCULTATION: Yes normoactive bowel sounds PALPATION: Yes Soft to palpation, No Tenderness to palpation present (GI), No Guarding due to palpation present (GI) and Yes No hepatosplenomegaly present Extremity: OTHER: No edema lower extremities there is a dry eschar without drainage on the left anterior proximal tibia. There is mild irritation and redness around this area with proximal lymphangitic spread Neuro: SENSORIUM/ORIENTATION: Yes oriented to person, Yes oriented to place and Yes oriented to time Course Vital Signs: Vital signs: Vital Signs Temperature 98.9 F 10/20/22 16:57 Pulse Rate 108 H 10/20/22 19:28 Respiratory Rate 18 10/20/22 19:28 Blood Pressure 118/65 10/20/22 19:28 Pulse Oximetry 98 10/20/22 19:28 Oxygen Delivery Me thod 10/20/22 16:57 MDM - Wound/Laceration Medical Decision Making Care signed out to Dr. Amos at change of shift. See final notes for diagnosis and disposition. Medical Records I reviewed the patient's medical records. Lab Data I reviewed the patient's lab results. 10/20/22 18:15 10/20/22 18:15 Laboratory Results WBC 13.1 10^3/uL (4.0-10.0) H 10/20/22 18:15 RBC 4.62 10^6/uL (4.1-5.3) 10/20/22 18:15 Hgb 13.7 g/dL (11.7-16.6) 10/20/22 18:15 Hct 41.7 % (42.0-52.0) L 10/20/22 18:15 MCV 90.3 fl (80-94) 10/20/22 18:15 MCH 29.7 pg (28.0-34.0) 10/20/22 18:15 MCHC 32.9 g/dL (30.0-36.0) 10/20/22 18:15 RDW 12.6 % (12.1-15.1) 10/20/22 18:15 Plt Count 282 10^3/cmm (130-400) 10/20/22 18:15 MPV 10.2 fL (7.4-10.4) 10/20/22 18:15 Neut % (Auto) 69.0 % 10/20/22 18:15 Lymph % (Auto) 19.4 % 10/20/22 18:15 [place] % (Auto) 10.5 % 10/20/22 18:15 Eos % (Auto) 0.3 % 10/20/22 18:15 Baso % (Auto) 0.4 % 10/20/22 18:15 Neut # (Auto) 9.03 10^3/uL (1.8-7.7) H 10/20/22 18:15 Lymph # (Auto) 2.5 10^3/uL (0.8-4.8) 10/20/22 18:15 [place] # (Auto) 1.4 10^3/uL (0.2-0.9) H 10/20/22 18:15 Eos # (Auto) 0.0 10^3/uL (0.0-0.8) 10/20/22 18:15 Baso # (Auto) 0.1 10^3/uL (0.0-0.1) 10/20/22 18:15 Nucleated RBC % (auto) 0 % 10/20/22 18:15 Nucleated RBCs # 0.0 /100WBC 10/20/22 18:15 ESR 65 mm/hr (0-10) H 10/20/22 18:15 Sodium 132 mmol/L (136-145) L 10/20/22 18:15 Potassium 4.3 mmol/L (3.5-5.1) 10/20/22 18:15 Chloride 96 mmol/L (98-107) L 10/20/22 18:15 Carbon Dioxide 29 mmol/L (22-29) 10/20/22 18:15 Anion Gap 11.3 (5-19) 10/20/22 18:15 BUN 13 mg/dL (6-20) 10/20/22 18:15 Creatinine 0.9 mg/dL (0.7-1.2) 10/20/22 18:15 GFR Calculation 98.4 mL/min (90-130) 10/20/22 18:15 Glucose 90 mg/dL (65-115) 10/20/22 18:15 Calculated Osmolality 274 mOsm/kg (285-295) L 10/20/22 18:15 Lactate 0.6 mmol/L (0.5-2.2) 10/20/22 18:15 Calcium 9.5 mg/dL (8.5-10.5) 10/20/22 18:15 C-Reactive Protein 128.3 mg/L (0.0-4.9) H 10/20/22 18:15 C-Reactive Protein Cancelled 10/20/22 18:15 Discharge Plan Discharge Patient Disposition: Home Clinical Impression: Lymphangitis of lower extremity Cellulitis Qualifiers: Site of cellulitis of extremity: lower extremity Laterality: left Condition: Stable Prescriptions: New Bactrim DS 800-160 mg tablet 2 tab PO BID 10 Days Qty: 40 0RF No Action Zofran 4 mg Tablet 8 mg PO BID PRN (Reason: Nausea) Librium 25 mg Capsule 25 mg PO BID PRN (Reason: Anxiety) Bentyl 20 mg Tablet 40 mg PO BID promethazine 25 mg tablet 25 mg PO Q6H PRN (Reason: nausea and vomiting) Qty: 20 0RF Discharge Orders: Discharge ED (Routine); Ordered 10/20/22 Ordered By: Navarro Amos Patient Instructions: Cellulitis (ED), Lymphangitis (ED) Activity Restrictions/Additional Instructions: A line has been drawn around your red area of the leg. Take antibiotics as directed. Return if after 4 doses of antibiotics, the redness continues to spread and grow instead of decrease. Return also for fever greater than 100 despite 4 doses of antibiotics or more, vomiting medications, any other concerning symptoms. Coding Level of Care Code ED Counter Sales Person for Chg Fwd Exam Detailed Documented by User: Navarro Amos DO 10/20/22 20:35 HPI - Wound/Laceration General: Chief Complaint: Wound/Laceration Stated Complaint: Left leg sore/swelling Time Seen by Provider: 10/20/22 17:12 PFSH ED PFSH: Medical History Allergic reaction History of asthma Surgical History History of tonsillectomy Family History Grandfather Stroke Father Hypertension Social History Smoking and tobacco status: current every day smoker Alcohol intake: never Course Vital Signs: Vital signs: Vital Signs Temperature 98.9 F 10/20/22 16:57 Pulse Rate 108 H 10/20/22 19:28 Respiratory Rate 18 10/20/22 19:28 Blood Pressure 118/65 10/20/22 19:28 Pulse Oximetry 98 10/20/22 19:28 Oxygen Delivery Me thod 10/20/22 16:57 MDM - Wound/Laceration Medical Decision Making Care signed out to Dr. Amos at change of shift. See final notes for diagnosis and disposition. Lactate is 0.6. Sed rate is elevated. White blood cell count is 13. No fever here. Patient has not vomiting. Given his cellulitis, elevation in sed rate, and streaking, he was offered admission with IV antibiotics but adamantly declined. He is given Bactrim here, and we will continue this. Bedside ultrasound did not reveal a fluid collection or abscess in the cellulitic area Lab Data 10/20/22 18:15 10/20/22 18:15 Laboratory Results WBC 13.1 10^3/uL (4.0-10.0) H 10/20/22 18:15 RBC 4.62 10^6/uL (4.1-5.3) 10/20/22 18:15 Hgb 13.7 g/dL (11.7-16.6) 10/20/22 18:15 Hct 41.7 % (42.0-52.0) L 10/20/22 18:15 MCV 90.3 fl (80-94) 10/20/22 18:15 MCH 29.7 pg (28.0-34.0) 10/20/22 18:15 MCHC 32.9 g/dL (30.0-36.0) 10/20/22 18:15 RDW 12.6 % (12.1-15.1) 10/20/22 18:15 Plt Count 282 10^3/cmm (130-400) 10/20/22 18:15 MPV 10.2 fL (7.4-10.4) 10/20/22 18:15 Neut % (Auto) 69.0 % 10/20/22 18:15 Lymph % (Auto) 19.4 % 10/20/22 18:15 [place] % (Auto) 10.5 % 10/20/22 18:15 Eos % (Auto) 0.3 % 10/20/22 18:15 Baso % (Auto) 0.4 % 10/20/22 18:15 Neut # (Auto) 9.03 10^3/uL (1.8-7.7) H 10/20/22 18:15 Lymph # (Auto) 2.5 10^3/uL (0.8-4.8) 10/20/22 18:15 [place] # (Auto) 1.4 10^3/uL (0.2-0.9) H 10/20/22 18:15 Eos # (Auto) 0.0 10^3/uL (0.0-0.8) 10/20/22 18:15 Baso # (Auto) 0.1 10^3/uL (0.0-0.1) 10/20/22 18:15 Nucleated RBC % (auto) 0 % 10/20/22 18:15 Nucleated RBCs # 0.0 /100WBC 10/20/22 18:15 ESR 65 mm/hr (0-10) H 10/20/22 18:15 Sodium 132 mmol/L (136-145) L 10/20/22 18:15 Potassium 4.3 mmol/L (3.5-5.1) 10/20/22 18:15 Chloride 96 mmol/L (98-107) L 10/20/22 18:15 Carbon Dioxide 29 mmol/L (22-29) 10/20/22 18:15 Anion Gap 11.3 (5-19) 10/20/22 18:15 BUN 13 mg/dL (6-20) 10/20/22 18:15 Creatinine 0.9 mg/dL (0.7-1.2) 10/20/22 18:15 GFR Calculation 98.4 mL/min (90-130) 10/20/22 18:15 Glucose 90 mg/dL (65-115) 10/20/22 18:15 Calculated Osmolality 274 mOsm/kg (285-295) L 10/20/22 18:15 Lactate 0.6 mmol/L (0.5-2.2) 10/20/22 18:15 Calcium 9.5 mg/dL (8.5-10.5) 10/20/22 18:15 C-Reactive Protein 128.3 mg/L (0.0-4.9) H 10/20/22 18:15 C-Reactive Protein Cancelled 10/20/22 18:15 Discharge Plan Discharge Patient Disposition: Home Clinical Impression: Lymphangitis of lower extremity Cellulitis Qualifiers: Site of cellulitis of extremity: lower extremity Laterality: left Condition: Stable Prescriptions: New Bactrim DS 800-160 mg tablet 2 tab PO BID 10 Days Qty: 40 0RF No Action Zofran 4 mg Tablet 8 mg PO BID PRN (Reason: Nausea) Librium 25 mg Capsule 25 mg PO BID PRN (Reason: Anxiety) Bentyl 20 mg Tablet 40 mg PO BID promethazine 25 mg tablet 25 mg PO Q6H PRN (Reason: nausea and vomiting) Qty: 20 0RF Discharge Orders: Discharge ED (Routine); Ordered 10/20/22 Ordered By: Navarro Amos Patient Instructions: Cellulitis (ED), Lymphangitis (ED) Activity Restrictions/Additional Instructions: A line has been drawn around your red area of the leg. Take antibiotics as directed. Return if after 4 doses of antibiotics, the redness continues to spread and grow instead of decrease. Return also for fever greater than 100 despite 4 doses of antibiotics or more, vomiting medications, any other concerning symptoms. Coding Level of Care Code ED Counter Sales Person for Chg Fwd Exam Detailed
[2022-10-20 18:33] LABS: Basophils # 0.1 10^3/uL (0.0-0.1); Basophils % 0.4 %; Eosinophils % 0.3 %; Hematocrit 41.7 % (42.0-52.0); Hemoglobin 13.7 g/dL (11.7-16.6); Lymphocytes # 2.5 10^3/uL (0.8-4.8); Lymphocytes % 19.4 %; Mean Corpuscular HGB Conc 32.9 g/dL (30.0-36.0); Mean Corpuscular Hemoglobin 29.7 pg (28.0-34.0); Mean Corpuscular Volume 90.3 fl (80-94); Mean Platelet Volume 10.2 fL (7.4-10.4); Monocytes # 1.4 10^3/uL (0.2-0.9); Monocytes % 10.5 %; Neutrophils # 9.03 10^3/uL (1.8-7.7); Nucleated Red Blood Cells % 0 %; Platelet Count 282 10^3/cmm (130-400); Red Blood Count 4.62 10^6/uL (4.1-5.3); Red Cell Distribution Width 12.6 % (12.1-15.1); White Blood Count 13.1 10^3/uL (4.0-10.0)
[2022-10-20 18:48] LABS: Erythrocyte Sedimentation Rate 65 mm/hr (0-10)
[2022-10-20 18:49] LABS: Anion Gap 11.3 (5-19); Blood Urea Nitrogen 13 mg/dL (6-20); C Reactive Protein 128.3 mg/L (0.0-4.9); Calcium 9.5 mg/dL (8.5-10.5); Carbon Dioxide 29 mmol/L (22-29); Chloride 96 mmol/L (98-107); Glomerular Filtration Rate 98.4 mL/min (90-130); Glucose 90 mg/dL (65-115); Osmolality Calculated 274 mOsm/kg (285-295); Potassium 4.3 mmol/L (3.5-5.1); Sodium 132 mmol/L (136-145)
[2022-10-20 18:54] LABS: Lactate (Lactic Acid level) 0.6 mmol/L (0.5-2.2)
[2022-10-20] MEDS: sulfamethoxazole-trimeth DS 160-800 mg Tablet 2 TAB PO (19:03)
[2022-10-20 19:28] VITALS: BP 118/65; PULSE 108; RESP 18; O2SAT 98
== END 2022-10-20 19:32 | disposition home or self-care (01) ==
PROVIDERS: Family Medicine; Emergency Provider Emergency Medicine
DX: L03.116 Cellulitis of left lower limb (principal); I89.1 Lymphangitis; F17.210 Nicotine dependence, cigarettes, uncomplicated
CPT/HCPCS: 36415; 80048; 83605; 85025; 85651; 86140; 87040; 99283

== ENCOUNTER 2022-10-22 13:00 | Emergency (ER) | payer MEDICAID, SELFPAY ==
[2022-10-22 13:53] VITALS: BP 121/69; PULSE 117; RESP 14; TEMP 36.9; O2SAT 97
[2022-10-22 15:54] VITALS: BP 137/90; O2SAT 98
[2022-10-22 15:55] VITALS: BP 137/90; O2SAT 98
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
[2022-10-22] MEDS: cefTRIAXone 1,000 MG in lidocaine 1% 2.1 ML 1 MG IM (16:06)
[2022-10-22] MEDS: HYDROcodone-acetaminophen 7.5-325 mg Tablet 1 TAB PO (16:07)
[2022-10-22 16:46] VITALS: BP 137/90; PULSE 91; RESP 17; O2SAT 96
== END 2022-10-22 16:48 | disposition home or self-care (01) ==
PROVIDERS: Emergency Provider Physician Assistant
DX: L03.116 Cellulitis of left lower limb (principal); Z76.0 Encounter for issue of repeat prescription; F17.210 Nicotine dependence, cigarettes, uncomplicated
CPT/HCPCS: 99284; J0696

== ENCOUNTER 2024-05-01 23:44 | Emergency (ER) | payer MEDICAID, SELFPAY ==
[2024-05-01 23:45] VITALS: BP 127/81; PULSE 65; RESP 20; TEMP 36.4; O2SAT 96; BMI 20.5
--- NOTE | 2024-05-01 23:56 | ED_ITS ---
Documented by User: PAMELA Pineda 05/02/24 00:57 HPI - Medical Clearance General: Chief complaint: Overdose Stated complaint: fit for conf. Time Seen by Provider: 05/01/24 23:50 Source: patient Mode of arrival: ambulatory Limitations: no limitations History of Present Illness: Patient is a 34-year-old male who presents to the ED today in police custody requesting a fit for confinement. Patient reportedly was getting pulled over so he swallowed a handful of fentanyl pills so police would not find them. There is question on how many pills he swallowed as the history has changed as few as two to as many as fifteen. MD complaint: medical clearance requested Onset (ago): hour(s) (swallowed one hour ago) Associated Symptoms: denies other symptoms Treatments Prior to Arrival: none Review of Systems General: Reports: Other Card: Denies: chest pain Resp: Denies: dyspnea GI: Denies: abdominal pain, nausea, vomiting or diarrhea Skin/Breast: Denies: rash Neuro: Denies: headache(s) PFSH ED PFSH: Medical History History of asthma Allergic reaction Surgical History History of tonsillectomy Family History Grandfather Stroke Father Hypertension Social History Smoking and tobacco/nicotine status: current every day tobacco/nicotine user Alcohol intake: never Substance/Drug Use: current Physical Exam Const: COMMON NORMALS: average body habitus, patient oriented x3 and alert GENERAL APPEARANCE: cooperative and appears older than stated age OTHER: drowsy but responds to questioning; vitals stable Resp: COMMON NORMALS: normal respiratory effort and clear to auscultation bilaterally AUSCULTATION: clear to auscultation bilaterally Cardio: COMMON NORMALS: regular rate and regular rhythm RATE: regular rate RHYTHM: regular rhythm Neuro: FELISHA COMA SCALE: document GCS findings Felisha coma scale eye opening: Spontaneous [place] coma scale verbal response: Orientated Felisha coma scale motor response: Obey commands Felisha coma scale total score: 15 COMMON NORMALS: patient oriented x3, moves all extremities, no focal motor deficits and no sensory deficits noted SENSORIUM/ORIENTATION: Yes alert Course Vital Signs: Vital signs: Vital Signs Temperature 97.6 F 05/01/24 23:45 Pulse Rate 58 L 05/02/24 02:25 Respiratory Rate 18 05/02/24 02:25 Blood Pressure 121/68 05/02/24 02:25 Pulse Oximetry 95 05/02/24 02:25 Discharge Plan Discharge Patient Disposition: Home Clinical Impression: Opiate misuse, In police custody Condition: Stable Prescriptions: No Action Celebrex 100 mg capsule 100 mg PO BID PRN (Reason: pain) Qty: 20 0RF Zofran 4 mg Tablet 8 mg PO BID PRN (Reason: Nausea) Librium 25 mg Capsule 25 mg PO BID PRN (Reason: Anxiety) Bentyl 20 mg Tablet 40 mg PO BID promethazine 25 mg tablet 25 mg PO Q6H PRN (Reason: nausea and vomiting) Qty: 20 0RF Discharge Orders: Discharge ED (Routine); Ordered 05/02/24 Ordered By: Sagar Olsen Patient Instructions: Opioid Safety Activity Restrictions/Additional Instructions: You have been evaluated in the ER and is felt you are fit for confinement. You will be discharged to police custody. Coding Level of Care Code ED Assembly Machine Tool Setter for Chg Fwd Documented by User: Sagar Olsen DO 05/02/24 18:37 HPI - Medical Clearance General: Chief complaint: Overdose Stated complaint: fit for conf. Time Seen by Provider: 05/01/24 23:50 PFSH ED PFSH: Medical History History of asthma Allergic reaction Surgical History History of tonsillectomy Family History Grandfather Stroke Father Hypertension Social History Smoking and tobacco/nicotine status: current every day tobacco/nicotine user Alcohol intake: never Substance/Drug Use: current Physical Exam Neuro: FELISHA COMA SCALE: document GCS findings Felisha coma scale total score: 15 Course Vital Signs: Vital signs: Vital Signs Temperature 97.6 F 05/01/24 23:45 Pulse Rate 58 L 05/02/24 02:25 Respiratory Rate 18 05/02/24 02:25 Blood Pressure 121/68 05/02/24 02:25 Pulse Oximetry 95 05/02/24 02:25 MDM - Medical Clearance Medical Decision Making Patient transferred care over to myself at the end of midlevel shift, lab work was reviewed. Patient stable entire time with stable vital signs. Patient is felt to be fit for confinement and will be discharged back to police custody. No radiology studies performed this visit Discharge Plan Discharge Patient Disposition: Home Clinical Impression: Opiate misuse, In police custody Condition: Stable Prescriptions: No Action Celebrex 100 mg capsule 100 mg PO BID PRN (Reason: pain) Qty: 20 0RF Zofran 4 mg Tablet 8 mg PO BID PRN (Reason: Nausea) Librium 25 mg Capsule 25 mg PO BID PRN (Reason: Anxiety) Bentyl 20 mg Tablet 40 mg PO BID promethazine 25 mg tablet 25 mg PO Q6H PRN (Reason: nausea and vomiting) Qty: 20 0RF Discharge Orders: Discharge ED (Routine); Ordered 05/02/24 Ordered By: Sagar Olsen Patient Instructions: Opioid Safety Activity Restrictions/Additional Instructions: You have been evaluated in the ER and is felt you are fit for confinement. You will be discharged to police custody. Coding Level of Care Code ED Assembly Machine Tool Setter for Yenni Gruber
[2024-05-02 01:47] VITALS: BP 127/65; PULSE 60; RESP 16; O2SAT 95
[2024-05-02 02:25] VITALS: BP 121/68; PULSE 58; RESP 18; O2SAT 95
== END 2024-05-02 02:27 | disposition home or self-care (01) ==
PROVIDERS: Emergency Provider Physician Assistant
DX: F11.90 Opioid use, unspecified, uncomplicated (principal); J45.909 Unspecified asthma, uncomplicated; F17.210 Nicotine dependence, cigarettes, uncomplicated; Z79.899 Other long term (current) drug therapy
CPT/HCPCS: 99281

== ENCOUNTER 2024-11-25 09:51 | Outpatient (CLI) | payer BC, MEDICAID, SELFPAY ==
[2024-11-25 11:37] LABS: Alanine Aminotransferase 55 U/L (0-41); Albumin Level 4.1 g/dL (3.5-5.2); Alkaline Phosphatase 98 U/L (40-130); Blood Urea Nitrogen 13 mg/dL (6-20); Calcium 8.9 mg/dL (8.5-10.5); Carbon Dioxide 25 mmol/L (22-29); Chloride 99 mmol/L (98-107); Globulin 3.2 g/dL (1.3-4.6); Glomerular Filtration Rate 63.6 mL/min (90-130); Glucose 115 mg/dL (65-115); Osmolality Calculated 283 mOsm/kg (285-295); Sodium 136 mmol/L (136-145); Total Bilirubin 0.4 mg/dL (0.15-1.2); Total Protein 7.3 g/dL (6.6-8.7)
[2024-11-25 11:39] LABS: Anion Gap 16.8 (5-19); Aspartate Amino Transferase 34 U/L (0-40); Potassium 4.8 mmol/L (3.5-5.1)
[2024-11-25 11:48] LABS: Hepatitis A Antibody IgM Non-Reactive (Nonreactive); Hepatitis B Core AB, Total Reactive (Nonreactive); Hepatitis B Surface AB < 3.5 (11.5-1000); Hepatitis B Surface Antigen Non-Reactive (Nonreactive); Hepatitis C Virus Antibody Reactive (Nonreactive)
== END 2024-11-25 09:52 | disposition home or self-care (01) ==
LOC: LAB 09:56
PROVIDERS: Visit Provider Pediatrics
DX: B19.20 Unspecified viral hepatitis C without hepatic coma (principal)
CPT/HCPCS: 36415; 80053; 86705; 86706; 86709; 86803; 87340; 87522

== ENCOUNTER 2024-12-10 13:48 | Outpatient (CLI) | payer MEDICAID, SELFPAY ==
[2024-12-10 15:04] LABS: Basophils % 0.8 %; Eosinophils # 0.3 10^3/uL (0.0-0.8); Eosinophils % 5.6 %; Hematocrit 51.6 % (37-53); Lymphocytes % 38.5 %; Mean Corpuscular HGB Conc 33.9 g/dL (30-55); Mean Corpuscular Hemoglobin 30.7 pg (27-33); Mean Corpuscular Volume 90.5 fl (82-101); Mean Platelet Volume 10.7 fL (7.4-10.4); Monocytes # 0.5 10^3/uL (0.2-0.9); Monocytes % 10.3 %; Neutrophils # 2.33 10^3/uL (1.8-7.7); Neutrophils % 44.6 %; Nucleated Red Blood Cells % 0 %; Platelet Count 308 10^3/cmm (157-399); Red Cell Distribution Width 11.8 % (12.1-15.1); White Blood Count 5.22 10^3/uL (3.29-11.43)
[2024-12-10 15:11] LABS: INR 0.96 (0.8-1.2)
[2024-12-10 15:13] LABS: Alanine Aminotransferase 259 U/L (0-41); Albumin Level 4.3 g/dL (3.5-5.2); Alkaline Phosphatase 108 U/L (40-130); Anion Gap 14.2 (5-19); Aspartate Amino Transferase 135 U/L (0-40); Blood Urea Nitrogen 14 mg/dL (6-20); Calcium 9.7 mg/dL (8.5-10.5); Carbon Dioxide 25 mmol/L (22-29); Chloride 103 mmol/L (98-107); Globulin 3.4 g/dL (1.3-4.6); Glomerular Filtration Rate 77.1 mL/min (90-130); Glucose 94 mg/dL (65-115); Osmolality Calculated 284 mOsm/kg (285-295); Potassium 5.2 mmol/L (3.5-5.1); Sodium 137 mmol/L (136-145); Total Bilirubin 0.5 mg/dL (0.15-1.2); Total Protein 7.7 g/dL (6.6-8.7)
[2024-12-10 15:25] LABS: Hepatitis B Core IgM Non-Reactive (Nonreactive)
[2024-12-10 15:59] LABS: HIV 1 & 2 Antibody Non-Reactive (Non-Reactiv); HIV 1 & 2 Antigen Non-Reactive (Non-Reactiv)
[2024-12-11 10:27] LABS: Hepatitis B Envelope Antigen NON-REACTIVE (NON-REACTIVE)
== END 2024-12-10 13:49 | disposition home or self-care (01) ==
LOC: LAB 13:53
PROVIDERS: PCP Family Medicine; Visit Provider Family Medicine
DX: B19.20 Unspecified viral hepatitis C without hepatic coma (principal)
CPT/HCPCS: 80053; 80307; 85025; 85610; 86705; 87350; 87806; 87902

== ENCOUNTER 2025-01-08 07:18 | Outpatient (CLI) | payer MEDICAID, SELFPAY ==
--- NOTE | 2025-01-08 07:23 | US_ITS ---
WS: [id number] Gallbladder and right upper quadrant ultrasound, 01/07/2025 Clinical Data: hep c Comparison: None. Findings: The gallbladder shows no sludge or stone. The wall measures 0.2 cm with no pericholecystic fluid. The common bile duct is 0.3 cm and there are no intrahepatic ductal abnormalities. Liver shows no cysts, masses or dilated intrahepatic ducts. The liver parenchyma shows heterogeneous echotexture. The liver measures 15.4 cm. The main portal vein is 1.1 cm with hepatopetal flow. The pancreas shows no cyst, pseudocyst, or evidence of pancreatitis. Right kidney measures 9.8 cm and no cyst, masses or hydronephrosis can be seen. The aorta and inferior vena cava show no vascular abnormalities. US/US liver 18702 Impression: Negative gallbladder and right upper quadrant ultrasound.
== END 2025-01-08 07:19 | disposition home or self-care (01) ==
LOC: RAD 07:19
PROVIDERS: PCP Family Medicine; Visit Provider Family Medicine
DX: B19.20 Unspecified viral hepatitis C without hepatic coma (principal); R93.2 Abnormal findings on diagnostic imaging of liver and biliary tract
CPT/HCPCS: 76705

== ENCOUNTER → 2025-02-27 08:42 | Outpatient (BNVA) | payer MEDICAID, SELFPAY | PROVIDERS: PCP Family Medicine; Visit Provider Family Medicine | DX: B19.20 Unspecified viral hepatitis C without hepatic coma (principal) | CPT/HCPCS: 87522 ==

== ENCOUNTER 2025-03-10 13:20 | Outpatient (CLI) | payer MEDICAID, SELFPAY | END 2025-03-10 13:21 | disposition home or self-care (01) | DX: M25.521 Pain in right elbow (principal); R53.83 Other fatigue | CPT/HCPCS: 73080; 80053; 82607; 84403 ==

== ENCOUNTER 2025-09-17 15:00 | Outpatient (CLI) | payer MEDICAID, SELFPAY | END 2025-09-17 15:01 | disposition home or self-care (01) | LOC: SLEEP 09-24 06:43 | DX: G47.33 Obstructive sleep apnea (adult) (pediatric) (principal) | CPT/HCPCS: G0399 ==

== ENCOUNTER 2025-09-20 16:35 | Emergency (ER) | payer MEDICAID, SELFPAY ==
[2025-09-20 16:39] VITALS: BP 167/128; PULSE 110; TEMP 36.8; O2SAT 97; BMI 29.3
--- NOTE | 2025-09-20 16:48 | XRR_ITS ---
PROCEDURE INFORMATION: Exam: XR Chest Exam date and time: 09/20/2025 5:27 PM Age: 35 years old Clinical indication: Pain; Chest pressure; Additional Info: cp TECHNIQUE: Imaging protocol: Radiologic exam of the chest. Views: 1 view. COMPARISON: 1. CR XR chest 1V portable [id number] 09/08/2022 10:[address] angio chest w abd pel w con 12/21/2021 3:53 PM FINDINGS: Lungs: Lungs are well aerated. Pulmonary vascularity is normal. No suspicious pulmonary nodule/s. No focal consolidation is appreciated. Pleural spaces: No pleural effusion. No pneumothorax. Heart/Mediastinum: Unremarkable. No cardiomegaly. Bones/joints: Unremarkable. XR/XR chest 1V portable [id number] IMPRESSION: No acute findings. No change compared with prior study.
[2025-09-20 17:04] VITALS: BP 154/96; PULSE 96; O2SAT 92
--- NOTE | 2025-09-20 17:04 | W.ED.HA ---
HPI - Headache General: Chief Complaint: Headache Stated Complaint: high bp Time Seen by Provider: 09/20/25 16:38 Source: patient Mode of arrival: ambulatory Limitations: no limitations History of Present Illness: Patient is a 35-year-old male who presents the emergency department complaining of high blood pressure. States this this has been going on for months, but today has noticed that it has been 180 systolic. He has been on testosterone for 6 months as well. Notes a headache, that is posterior and related to when his blood pressure is elevated. He did take someone else's 5 mg lisinopril which she has been intermittently in the past and normally helps, states today that has not. Blood pressure 167/128 with triage, he is minimally tachycardic. He has no other symptoms, specifically no chest pain, shortness of breath, peripheral edema, nausea or vomiting, visual changes, or abdominal pain. No pertinent past medical history, does report a family history of high blood pressure. MD elicited complaint: headache Pertinent past history: hypertension Associated symptoms: Deny chest pain, fever(s), lightheadedness, nausea, rash or vomiting Related Data Home Medications ?Medication ?Instructions ?Recorded ?Confirmed melatonin 10 mg capsule 10 mg PO DAILY 02/27/25 03/10/25 Previous Rx's ?Medication ?Instructions ?Recorded albuterol sulfate 90 mcg/actuation 2 puff inhalation Q6H PRN 11/25/24 aerosol inhaler shortness of breath or wheezing #6.7 grams cetirizine 10 mg tablet (All Day 10 mg PO DAILY #30 tabs 11/25/24 Allergy (cetirizine)) glecaprevir 100 mg-pibrentasvir 40 3 tab PO DAILY 8 weeks #168 tabs 01/15/25 mg tablet (Mavyret) lisinopril 10 mg tablet 10 mg PO DAILY #30 tabs 09/20/25 Allergies Allergy/AdvReac Type Severity Reaction Status Date / Time iodine Allergy ALGY-Hives Verified 09/20/25 16:44 Penicillins Allergy ALGY-Hives Verified 09/20/25 16:44 Review of Systems General: Reports: 10 or more systems reviewed and unremarkable except in HPI and below Const: Denies: fever(s), chills or fatigue Eyes: Denies: change in vision ENMT: Denies: throat pain, ear or mastoid pain or nasal discharge Card: Reports: other (htn); Denies: chest pain, palpitations, swelling of feet/ankles or lightheadedness Resp: Denies: dyspnea, productive cough or wheezing GI: Denies: abdominal pain, nausea, vomiting, diarrhea or constipation : Denies: flank pain, difficulty urinating, dysuria or urinary frequency Musc: Denies: neck pain, back pain or joint pain Skin/Breast: Denies: rash Neuro: Reports: headache(s); Denies: numbness in extremities or weakness in extremities PFSH ED PFSH: Medical History Loud snoring Right elbow pain Fatigue Allergic rhinitis due to animal dander Asthma History of asthma Allergic reaction Surgical History History of tonsillectomy Family History Grandfather Stroke Father Hypertension Mother Hyperlipidemia Social History Smoking and tobacco/nicotine status: never used tobacco/nicotine Alcohol intake: never Substance/Drug Use: current Physical Exam Const: COMMON NORMALS: no acute distress, patient oriented x3 and no limitations GENERAL APPEARANCE: cooperative, comfortable and well developed ORIENTATION/CONSCIOUSNESS: Yes awake, Yes oriented to person, Yes oriented to place and Yes oriented to time HENMT: COMMON NORMALS: normocephalic, atraumatic and hearing grossly normal bilaterally HEAD & SCALP: normocephalic and atraumatic Eye: COMMON NORMALS: Equal, round and reactive pupils present, EOMs intact bilaterally and conjunctivae normal CONJUNCTIVA: Yes conjunctivae normal PUPIL: Yes Equal, round and reactive pupils present Neck/C-Spine: COMMON NORMALS: full ROM, supple and no JVD Resp: COMMON NORMALS: normal respiratory effort, No retractions, No use of accessory muscles and clear to auscultation bilaterally AUSCULTATION: clear to auscultation bilaterally Cardio: COMMON NORMALS: no JVD, regular rate, regular rhythm, No clicks present (Cardio), No murmurs present (Cardio) and No rub (Cardio) RATE: regular rate RHYTHM: regular rhythm GI: COMMON NORMALS: Normal to inspection, nondistended, normoactive bowel sounds present, Soft to palpation and non-tender AUSCULTATION: Yes normoactive bowel sounds PALPATION: Yes Soft to palpation RECTAL EXAM: Yes deferred Extremity: COMMON NORMALS: normal to inspection, full ROM and capillary refill normal Neuro: COMMON NORMALS: patient oriented x3, moves all extremities, no focal motor deficits and no sensory deficits noted SENSORIUM/ORIENTATION: Yes oriented to person, Yes oriented to place and Yes oriented to time Skin: COMMON NORMALS: no rashes or lesions noted GENERAL SKIN EXAM: no rashes or lesions noted Course Vital Signs: Vital signs: Vital Signs Temperature 98.2 F 09/20/25 16:39 Pulse Rate 96 09/20/25 17:04 Blood Pressure 154/96 09/20/25 17:04 Pulse Oximetry 92 09/20/25 17:04 Oxygen Delivery Me thod Room Air 09/20/25 17:04 MDM - Headache Medical Decision Making Patient presented with headache, however accompanied this with his reports of hypertension at home. He does note that he has been getting high readings since the past 8 months, also notes in that same time. He has started taking testosterone. No chest pain or shortness of breath here, and he is hypertensive and has remained so throughout ED stay. Regularly 160s systolic, and minimally tachycardic. His EKG did not show any rhythm changes or ST segment elevation. Chest x-ray did not show any cardiomegaly or pleural effusions. No adventitious heart or lung sounds. No visual changes were endorsed to me. Overall the exam was unremarkable. With lab work, there is no evidence that he has any proteinuria or kidney dysfunction to indicate any renovascular cause for hypertension. This could be related to his use of testosterone, or his strong reported family history of primary hypertension. Regardless I find it appropriate at this time to start on low-dose lisinopril and to to monitor his blood pressure and heart rate at home until he can report these to primary care in a couple of weeks. In the meantime told him to return with any new or worsening but he is stable for discharge at this time. Lab Data 09/20/25 17:25 09/20/25 17:25 Radiology Impressions Chest X-Ray 09/20/25 16:48 IMPRESSION: No acute findings. No change compared with prior study. Laboratory Results WBC 7.83 10^3/uL (3.29-11.43) 09/20/25 17: RBC 5.98 10^6/uL (3.85-5.65) H 09/20/25 17: Hgb 18.00 g/dL (11.27-16.99) H 09/20/25 17:25 Hct 53.0 % (37-53) 09/20/25: MCV 88.6 fl (82-101) 09/20/25 17: MCH 30.1 pg (27-33) 09/20/25 17: MCHC 34.0 g/dL (30-55) 09/20/25: RDW 12.5 % (12.1-15.1) 09/20/25: Plt Count 306 10^3/cmm (157-399) 09/20/25: MPV 10.0 fL (7.4-10.4) 09/20/25 17: Neut % (Auto) 53.5 % 09/20/25 17: Lymph % (Auto) 34.4 % 09/20/25 17: [place] % (Auto) 9.5 % 09/20/25 17: Eos % (Auto) 2.0 % 09/20/25: Baso % (Auto) 0.5 % 09/20/25: Neut # (Auto) 4.19 10^3/uL (1.8-7.7) 09/20/25: Lymph # (Auto) 2.7 10^3/uL (0.8-4.8) 09/20/25 17:25 [place] # (Auto) 0.7 10^3/uL (0.2-0.9) 09/20/25: Eos # (Auto) 0.2 10^3/uL (0.0-0.8) 09/20/25: Baso # (Auto) 0.0 10^3/uL (0.0-0.1) 09/20/25: Nucleated RBC % (auto) 0 % 09/20/25: Nucleated RBCs # 0.0 /100WBC 09/20/25 17: Sodium 134 mmol/L (136-145) L 09/20/25 17:25 Potassium 4.3 mmol/L (3.5-5.1) 09/20/25 17:25 Chloride 99 mmol/L (98-107) 09/20/25 17:25 Carbon Dioxide 23 mmol/L (22-29) 09/20/25 17:25 Anion Gap 16.3 (5-19) 09/20/25 17:25 BUN 15 mg/dL (6-20) 09/20/25 17:25 Creatinine 1.4 mg/dL (0.7-1.2) H 09/20/25 17:25 GFR Calculation 58.0 mL/min (90-130) L 09/20/25 17: Glucose 113 mg/dL (65-115) 09/20/25 17: Calculated Osmolality 280 mOsm/kg (285-295) L 09/20/25 17:25 Calcium 9.7 mg/dL (8.5-10.5) 09/20/25 17:25 Total Bilirubin 0.4 mg/dL (0.15-1.2) 09/20/25 17:25 AST 46 U/L (0-40) H 09/20/25 17:25 ALT 54 U/L (0-41) H 09/20/25 17:25 Alkaline Phosphatase 52 U/L (40-130) 09/20/25 17:25 Total Protein 7.6 g/dL (6.6-8.7) 09/20/25 17:25 Albumin 4.2 g/dL (3.5-5.2) 09/20/25 17:25 Globulin 3.4 g/dL (1.3-4.6) 09/20/25 17:25 Urine Color Yellow (Yellow) 09/20/25 17:16 Urine Appearance Clear (CLEAR) 09/20/25 17:16 Urine pH 7.5 (5-7) 09/20/25 17:16 Ur Specific [place] 1.015 (1.005-1.030) 09/20/25 17:16 Urine Protein Negative (Negative) 09/20/25 17:16 Urine Glucose (UA) Negative (Normal) 09/20/25 17:16 Urine Ketones Negative (Negative) 09/20/25 17:16 Urine Blood Negative (Negative) 09/20/25 17:16 Urine Nitrate Negative (Negative) 09/20/25 17:16 Urine Bilirubin Negative (Negative) 09/20/25 17:16 Urine Urobilinogen 0.2 mg/dL (Negative) 09/20/25 17:16 Ur Leukocyte Esterase Negative (Negative) 09/20/25 17:16 Urine RBC 0-2 /hpf (0-2) 09/20/25 17:16 Urine WBC 0-5 /hpf (0-5) 09/20/25 17:16 Ur Squamous Epith Cells 0-5 /hpf (0-5) 09/20/25 17:16 Amorphous Sediment Not Reportable 09/20/25 17:16 Urine Bacteria None seen /hpf (NONE) 09/20/25 17:16 Hyaline Casts 0-4 /lpf H 09/20/25 17:16 All radiology interpretation(s) finalized by discharge Discharge Plan Discharge Patient Disposition: Home Clinical Impression: Essential (primary) hypertension Condition: Stable Prescriptions: New lisinopril 10 mg tablet 10 mg PO DAILY Qty: 30 0RF No Action melatonin 10 mg capsule 10 mg PO DAILY albuterol sulfate 90 mcg/actuation HFA aerosol inhaler 2 puff inhalation Q6H PRN (Reason: shortness of breath or wheezing) Qty: 6.7 2RF cetirizine [All Day Allergy (cetirizine)] 10 mg tablet 10 mg PO DAILY Qty: 30 2RF Mavyret 100-40 mg tablet 3 tab PO DAILY 56 Days Qty: 168 0RF Rx Instructions: must administer with a meal/food Discharge Orders: Discharge ED (Routine); Ordered 09/20/25 Ordered By: Blair Casey Referrals: Norma Cohen NP [Primary Care Provider, Family Practice] Patient Instructions: Patient Portal & Joel Instructions Activity Restrictions/Additional Instructions: Hypertension Discharge Instructions You have been diagnosed with high blood pressure (hypertension) and are starting lisinopril 10 mg daily. Please follow these instructions to help manage your blood pressure and reduce your risk of complications: - Medication: Take lisinopril 10 mg by mouth once daily as prescribed. If you miss a dose, take it as soon as you remember, but do not double up. Report any side effects such as cough, dizziness, or swelling to your healthcare provider. - Home Blood Pressure and Heart Rate Monitoring: - Use a validated home blood pressure monitor (upper arm cuff preferred). - Measure your blood pressure and heart rate twice daily: two readings in the morning before taking medication and two readings in the evening before bed, at least one minute apart. - Sit quietly for five minutes before measuring, with your back supported and feet flat on the floor. Place the cuff on your bare upper arm, supported at heart level. - Record all readings in a log. Individual readings may vary; focus on the average over several days. - Duration of Monitoring: Continue daily monitoring for at least 7 days, ideally until your next follow-up appointment. Bring your log and device to all healthcare visits. - Follow-Up: Schedule a follow-up visit with your primary care provider in 1 month to assess your response to treatment and review lab work (creatinine and potassium). Monthly follow-up is recommended until your blood pressure is controlled, then every 3?6 months. - Lifestyle: Adopt heart-healthy habits: reduce salt intake, maintain a healthy weight, exercise regularly, avoid tobacco, and limit alcohol. - When to Seek Care: Contact your provider or seek medical attention if you experience severe headache, chest pain, shortness of breath, vision changes, or any concerning symptoms. - Bring your blood pressure log and medication list to every appointment. Your active participation in monitoring and follow-up is essential for effective blood pressure control and prevention of complications. Print Language: Spanish Coding Level of Care Code ED Laboratory Machinist for Yenni Gruber
--- NOTE | 2025-09-20 17:06 | ECG_ITS ---
[facility]: 2025-[facility]20 Pat Name: Dillan Brasher Department: Room: Gender: Male Banquet Houseperson: : 1990 Requested By: Blair Bishop Order Number: [id number] Jeevan MD: Jazmine Yeung M.D. Measurements Intervals [place] Rate: 101 P: 73 [place]: 127 QRS: 77 QRSD: 83 T: 38 QT: 292 QTc: 379 Interpretive Statements SINUS TACHYCARDIA POSSIBLE LEFT ATRIAL ENLARGEMENT [-0.1mV P-WAVE IN V1/V2] NONSPECIFIC T-WAVE ABNORMALITY ABNORMAL RHYTHM ECG Compared to ECG 09/08/2022 09:26:09 T-wave abnormality now present Sinus rhythm no longer present Electronically Signed On 09-20-2025 17:32:32 FURS SALESPERSON by Jazmine Yeung M.D. [email or web address]
[2025-09-20 17:25] LABS: Glucose Urine UA Negative (Normal); Nitrate Urine Negative (Negative); Specific Gravity, Urine 1.015 (1.005-1.030)
[2025-09-20 17:30] LABS: Hematocrit 53.0 % (37-53); Hemoglobin 18.00 g/dL (11.27-16.99); Mean Corpuscular HGB Conc 34.0 g/dL (30-55); Mean Corpuscular Hemoglobin 30.1 pg (27-33); Mean Corpuscular Volume 88.6 fl (82-101); Nucleated Red Blood Cells % 0 %; Platelet Count 306 10^3/cmm (157-399); Red Blood Count 5.98 10^6/uL (3.85-5.65); White Blood Count 7.83 10^3/uL (3.29-11.43)
[2025-09-20 17:30] LABS: Add Urine Microscopic? YES
[2025-09-20 17:46] LABS: Alanine Aminotransferase 54 U/L (0-41); Albumin Level 4.2 g/dL (3.5-5.2); Alkaline Phosphatase 52 U/L (40-130); Anion Gap 16.3 (5-19); Aspartate Amino Transferase 46 U/L (0-40); Blood Urea Nitrogen 15 mg/dL (6-20); Calcium 9.7 mg/dL (8.5-10.5); Carbon Dioxide 23 mmol/L (22-29); Chloride 99 mmol/L (98-107); Globulin 3.4 g/dL (1.3-4.6); Glucose 113 mg/dL (65-115); Osmolality Calculated 280 mOsm/kg (285-295); Potassium 4.3 mmol/L (3.5-5.1); Sodium 134 mmol/L (136-145); Total Protein 7.6 g/dL (6.6-8.7)
[2025-09-20 18:17] VITALS: BP 160/82; PULSE 88; O2SAT 90
== END 2025-09-20 18:19 | disposition home or self-care (01) ==
PROVIDERS: Emergency Provider Physician Assistant
DX: I10 Essential (primary) hypertension (principal)
CPT/HCPCS: 36415; 71045; 80053; 81001; 85025; 93005; 99285